=== PATIENT | female | born 1945 | race Caucasian/White ===

== ENCOUNTER 2020-09-04 02:30 | Inpatient (IN) | payer MEDICARE, OTHER ==
[2020-09-04 02:39] VITALS: BMI 30.2
[2020-09-04] MEDS ORDERED: DEXAMETHASONE SOD PHOSPHATE 4 MG/1 ML VIAL IVPUSH ONE (03:30)
[2020-09-04] MEDS ORDERED: ACETAMINOPHEN 1000 MG/100 ML VIAL (NON FORMULARY) IVPB ONE (03:30)
[2020-09-04] MEDS ORDERED: ACETAMINOPHEN INJECTION 100 ML IVPB ONE (03:32)
[2020-09-04] MEDS ORDERED: DEXAMETHASONE SOD PHOSPHATE 4 MG/1 ML VIAL ONE (03:32)
[2020-09-04 04:31] LABS: BASO % 0.1 % (0-2.0); EOS % 0.1 % (0-4.5); HEMATOCRIT 44.8 % (32.4-45.2); LYMPH % 7.9 % (8-40); MCH 29.1 pg (25.7-33.7); MCHC 33.5 g/dl (32.0-36.0); MEAN CELL VOLUME 86.8 fl (80-96); MEAN PLT VOLUME 8.5 fl (7.5-11.1); MONO % 5.8 % (3.8-10.2); NEUT % 86.1 % (42.8-82.8); PLATELET COUNT 339 K/MM3 (134-434); RBC 5.16 M/mm3 (3.60-5.2); RDW 14.3 % (11.6-15.6); WHITE BLOOD COUNT 13.8 K/mm3 (4.0-10.0)
[2020-09-04 04:46] LABS: INR 1.15 (0.83-1.09); PROTHROMBIN TIME (PATIENT) 13.9 SEC (9.7-13.0)
[2020-09-04 04:46] LABS: VENOUS BASE EXCESS 1.2 mmol/L (-2-2); VENOUS O2 SATURATION 56.5 % (70-80); VENOUS PH 7.403 (7.310-7.410)
[2020-09-04 04:49] LABS: ACTIVATED PTT 25.9 SECONDS (25.2-36.5); CHLORIDE 105 mmol/L (98-107); POTASSIUM 5.1 mmol/L (3.5-5.1); SODIUM 140 mmol/L (136-145)
[2020-09-04 04:51] LABS: ALBUMIN 2.8 g/dl (3.4-5.0); CALCIUM 8.4 mg/dL (8.5-10.1)
[2020-09-04 04:52] LABS: ANION GAP 10 MMOL/L (8-16); CO2 25 mmol/L (21-32); GLUCOSE,RANDOM 286 mg/dL (74-106)
[2020-09-04 04:54] LABS: BILIRUBIN,DIRECT 0.3 mg/dL (0.0-0.2)
[2020-09-04 04:55] LABS: CREATININE 0.9 mg/dL (0.55-1.3); SGOT/AST 21 U/L (15-37); SGPT/ALT 21 U/L (13-61)
[2020-09-04 04:56] LABS: BILIRUBIN,TOTAL 1.2 mg/dL (0.2-1); LDH 369 U/L (84-246); TOT PROT 7.2 g/dl (6.4-8.2)
[2020-09-04 04:57] LABS: ALK PHOS 98 U/L (45-117)
[2020-09-04 05:00] LABS: EPI CELLS 5 /uL (0-25.1); HYALINE CASTS 0 /uL (0-3.1); URINE APPEARANCE CLEAR; URINE BACTERIA 44 /uL (0-1359); URINE BILIRUBIN NEGATIVE (NEGATIVE); URINE COLOR YELLOW; URINE GLUCOSE (UA) TRACE (NEGATIVE); URINE KETONE NEGATIVE (NEGATIVE); URINE LEUK ESTERASE NEGATIVE (NEGATIVE); URINE NITRITE NEGATIVE (NEGATIVE); URINE PROTEIN 2+ (NEGATIVE); URINE RBC 3 /uL (0-23.9); URINE UROBILINOGEN 0.2 mg/dL (0.2-1.0); URINE WBC 2 /uL (0-25.8)
[2020-09-04] MEDS ORDERED: SODIUM CHLORIDE 0.9% 500 ML INFUS.BAG IV ONE (05:23)
[2020-09-04] MEDS ORDERED: ASCORBIC ACID 500 MG TABLET (FP) ONE (09:31)
[2020-09-04] MEDS ORDERED: DEXAMETHASONE 4 MG TABLET (FP) ONE (09:31)
[2020-09-04] MEDS ORDERED: CHOLECALCIFEROL (VIT D3) 1,000 UNIT (25 MCG) TABLET ONE (09:32)
[2020-09-04] MEDS ORDERED: ENOXAPARIN NA (PORCINE) 40 MG/0.4 ML DISP.SYRIN SQ ONE (09:32)
[2020-09-04] MEDS ORDERED: ZINC SULFATE 220 MG CAPSULE (FP) ONE (09:32)
[2020-09-04] MEDS: ENOXAPARIN NA (PORCINE) 40 MG/0.4 ML DISP.SYRIN SQ SCH (09:52)
[2020-09-04] MEDS: CHOLECALCIFEROL (VIT D3) 1,000 UNIT (25 MCG) TABLET PO SCH (09:52)
[2020-09-04] MEDS: ASCORBIC ACID 500 MG TABLET (FP) PO SCH ×2 (09:52→21:14)
[2020-09-04] MEDS ORDERED: LOSARTAN POTASSIUM 25 MG TABLET PO SCH ×2 (10:00→12:00)
[2020-09-04] MEDS ORDERED: ZINC SULFATE 220 MG TABLET PO SCH (10:00)
[2020-09-04] MEDS: amLODIPine BESYLATE 5 MG TABLET (FP) PO SCH (12:51)
[2020-09-04] MEDS: LOSARTAN POTASSIUM 25 MG TABLET PO SCH (21:14)
[2020-09-05 10:21] LABS: INR 1.19 (0.83-1.09); PROTHROMBIN TIME (PATIENT) 14.3 SEC (9.7-13.0)
[2020-09-05 10:25] LABS: HEMATOCRIT 43.2 % (32.4-45.2); HEMOGLOBIN 14.1 GM/dL (10.7-15.3); MCH 28.7 pg (25.7-33.7); MCHC 32.7 g/dl (32.0-36.0); MEAN CELL VOLUME 87.8 fl (80-96); MEAN PLT VOLUME 8.1 fl (7.5-11.1); PLATELET COUNT 353 K/MM3 (134-434); RBC 4.92 M/mm3 (3.60-5.2); RDW 14.4 % (11.6-15.6); WHITE BLOOD COUNT 17.6 K/mm3 (4.0-10.0)
[2020-09-05] MEDS: DEXAMETHASONE 4 MG TABLET (FP) PO SCH (10:31)
[2020-09-05] MEDS: LOSARTAN POTASSIUM 25 MG TABLET PO SCH ×2 (10:31→22:20)
[2020-09-05] MEDS: ENOXAPARIN NA (PORCINE) 40 MG/0.4 ML DISP.SYRIN SQ SCH (10:32)
[2020-09-05] MEDS: ASCORBIC ACID 500 MG TABLET (FP) PO SCH ×2 (10:32→22:29)
[2020-09-05] MEDS: CHOLECALCIFEROL (VIT D3) 1,000 UNIT (25 MCG) TABLET PO SCH (10:32)
[2020-09-05] MEDS: ZINC SULFATE 220 MG CAPSULE (FP) PO SCH (10:32)
[2020-09-05] MEDS: amLODIPine BESYLATE 5 MG TABLET (FP) PO SCH (10:32)
[2020-09-05] MEDS: CEFTRIAXONE 1 GM in DEXTROSE 5%-WATER - 50 ML IVPB SCH (10:33)
[2020-09-05] MEDS: ASPIRIN 81 MG CHEWABLE TABLETS PO SCH (10:33)
[2020-09-05 10:37] LABS: POTASSIUM 4.4 mmol/L (3.5-5.1)
[2020-09-05 10:44] LABS: ALBUMIN 2.4 g/dl (3.4-5.0); BLOOD UREA NITROGEN 24.5 mg/dL (7-18); CALCIUM 8.6 mg/dL (8.5-10.1)
[2020-09-05 10:46] LABS: BILIRUBIN,TOTAL 0.9 mg/dL (0.2-1); CREATININE 0.9 mg/dL (0.55-1.3)
[2020-09-05 10:47] LABS: TOT PROT 6.7 g/dl (6.4-8.2)
[2020-09-05] MEDS ORDERED: REMDESIVIR 200 MG in SODIUM CHLORIDE 210 ML IVPB ONE (17:00)
[2020-09-06] MEDS: CEFTRIAXONE 1 GM in DEXTROSE 5%-WATER - 50 ML IVPB SCH (10:04)
[2020-09-06] MEDS: amLODIPine BESYLATE 5 MG TABLET (FP) PO SCH (10:05)
[2020-09-06] MEDS: ASCORBIC ACID 500 MG TABLET (FP) PO SCH ×2 (10:05→22:07)
[2020-09-06] MEDS: CHOLECALCIFEROL (VIT D3) 1,000 UNIT (25 MCG) TABLET PO SCH (10:05)
[2020-09-06] MEDS: ZINC SULFATE 220 MG CAPSULE (FP) PO SCH (10:05)
[2020-09-06] MEDS: ASPIRIN 81 MG CHEWABLE TABLETS PO SCH (10:05)
[2020-09-06] MEDS: DEXAMETHASONE 4 MG TABLET (FP) PO SCH (10:06)
[2020-09-06] MEDS: LOSARTAN POTASSIUM 25 MG TABLET PO SCH ×2 (10:07→22:10)
[2020-09-06] MEDS: ENOXAPARIN NA (PORCINE) 40 MG/0.4 ML DISP.SYRIN SQ SCH (10:07)
[2020-09-06 12:10] LABS: BASO % 0.5 % (0-2.0); HEMATOCRIT 41.8 % (32.4-45.2); HEMOGLOBIN 13.9 GM/dL (10.7-15.3); LYMPH % 4.7 % (8-40); MCH 28.8 pg (25.7-33.7); MCHC 33.1 g/dl (32.0-36.0); MEAN CELL VOLUME 86.9 fl (80-96); MEAN PLT VOLUME 8.2 fl (7.5-11.1); MONO % 5.8 % (3.8-10.2); PLATELET COUNT 326 K/MM3 (134-434); RBC 4.81 M/mm3 (3.60-5.2); RDW 14.1 % (11.6-15.6)
[2020-09-06 12:17] LABS: POTASSIUM 4.6 mmol/L (3.5-5.1)
[2020-09-06 12:19] LABS: CALCIUM 8.3 mg/dL (8.5-10.1)
[2020-09-06 12:20] LABS: ALBUMIN 2.3 g/dl (3.4-5.0); BLOOD UREA NITROGEN 32.9 mg/dL (7-18)
[2020-09-06 12:23] LABS: CREATININE 0.9 mg/dL (0.55-1.3)
[2020-09-06 12:24] LABS: BILIRUBIN,TOTAL 0.5 mg/dL (0.2-1)
[2020-09-06 12:25] LABS: TOT PROT 6.6 g/dl (6.4-8.2)
[2020-09-06] MEDS: REMDESIVIR 100 MG in SODIUM CHLORIDE 230 ML IVPB SCH (17:10)
[2020-09-06] MEDS: INSULIN SLIDING SCALE (NOVOLOG) 1 VIAL SQ SCH ×2 (17:18→22:15)
[2020-09-06] MEDS ORDERED: INSULIN (LEVEMIR) 100 UNITS/ML UNITS SQ SCH (22:00)
[2020-09-06] MEDS: INSULIN (LEVEMIR) 100 UNITS/ML UNITS SQ SCH (22:11)
[2020-09-07] MEDS: INSULIN (LEVEMIR) 100 UNITS/ML UNITS SQ SCH ×2 (06:07→21:25)
[2020-09-07] MEDS: INSULIN SLIDING SCALE (NOVOLOG) 1 VIAL SQ SCH ×4 (06:08→21:24)
[2020-09-07 08:43] LABS: BASO % 0.1 % (0-2.0); HEMATOCRIT 41.5 % (32.4-45.2); LYMPH % 6.1 % (8-40); MCH 29.1 pg (25.7-33.7); MCHC 33.7 g/dl (32.0-36.0); MEAN CELL VOLUME 86.2 fl (80-96); MONO % 5.6 % (3.8-10.2); NEUT % 88.2 % (42.8-82.8); PLATELET COUNT 362 K/MM3 (134-434); RBC 4.82 M/mm3 (3.60-5.2); RDW 14.3 % (11.6-15.6)
[2020-09-07 08:56] LABS: POTASSIUM 4.2 mmol/L (3.5-5.1)
[2020-09-07 09:17] LABS: ALBUMIN 2.3 g/dl (3.4-5.0); BLOOD UREA NITROGEN 28.5 mg/dL (7-18); CALCIUM 8.4 mg/dL (8.5-10.1); MAGNESIUM 2.2 mg/dL (1.8-2.4)
[2020-09-07 09:21] LABS: CREATININE 0.8 mg/dL (0.55-1.3); PHOSPHOROUS 3.8 mg/dL (2.5-4.9)
[2020-09-07 09:22] LABS: BILIRUBIN,TOTAL 0.4 mg/dL (0.2-1); TOT PROT 6.5 g/dl (6.4-8.2)
[2020-09-07] MEDS: ENOXAPARIN NA (PORCINE) 40 MG/0.4 ML DISP.SYRIN SQ SCH (10:35)
[2020-09-07] MEDS: CEFTRIAXONE 1 GM in DEXTROSE 5%-WATER - 50 ML IVPB SCH (10:35)
[2020-09-07] MEDS: DEXAMETHASONE 4 MG TABLET (FP) PO SCH (10:36)
[2020-09-07] MEDS: ASPIRIN 81 MG CHEWABLE TABLETS PO SCH (10:38)
[2020-09-07] MEDS: amLODIPine BESYLATE 5 MG TABLET (FP) PO SCH (10:38)
[2020-09-07] MEDS: ASCORBIC ACID 500 MG TABLET (FP) PO SCH ×2 (10:38→21:24)
[2020-09-07] MEDS: LOSARTAN POTASSIUM 25 MG TABLET PO SCH ×2 (10:38→21:24)
[2020-09-07] MEDS: CHOLECALCIFEROL (VIT D3) 1,000 UNIT (25 MCG) TABLET PO SCH (10:38)
[2020-09-07] MEDS: ZINC SULFATE 220 MG CAPSULE (FP) PO SCH (10:38)
[2020-09-07] MEDS: REMDESIVIR 100 MG in SODIUM CHLORIDE 230 ML IVPB SCH (16:34)
[2020-09-08] MEDS: INSULIN (LEVEMIR) 100 UNITS/ML UNITS SQ SCH ×2 (07:03→21:06)
[2020-09-08] MEDS: INSULIN SLIDING SCALE (NOVOLOG) 1 VIAL SQ SCH ×4 (07:04→21:06)
[2020-09-08] MEDS ORDERED: INSULIN (LEVEMIR) 100 UNITS/ML UNITS SQ ONE (08:00)
[2020-09-08 09:42] LABS: BASO % 0.2 % (0-2.0); HEMATOCRIT 43.6 % (32.4-45.2); HEMOGLOBIN 14.6 GM/dL (10.7-15.3); LYMPH % 6.7 % (8-40); MCHC 33.4 g/dl (32.0-36.0); MEAN CELL VOLUME 86.7 fl (80-96); MONO % 6.1 % (3.8-10.2); PLATELET COUNT 358 K/MM3 (134-434); RBC 5.03 M/mm3 (3.60-5.2); RDW 14.1 % (11.6-15.6)
[2020-09-08 10:09] LABS: CHLORIDE 108 mmol/L (98-107); POTASSIUM 4.5 mmol/L (3.5-5.1); SODIUM 140 mmol/L (136-145)
[2020-09-08 10:12] LABS: ALBUMIN 2.2 g/dl (3.4-5.0); ANION GAP 13 MMOL/L (8-16); BLOOD UREA NITROGEN 29.5 mg/dL (7-18); CALCIUM 8.5 mg/dL (8.5-10.1); CO2 20 mmol/L (21-32); GLUCOSE,RANDOM 243 mg/dL (74-106); MAGNESIUM 2.2 mg/dL (1.8-2.4)
[2020-09-08 10:15] LABS: CREATININE 0.8 mg/dL (0.55-1.3); PHOSPHOROUS 4.6 mg/dL (2.5-4.9); SGOT/AST 8 U/L (15-37); SGPT/ALT 13 U/L (13-61)
[2020-09-08 10:16] LABS: BILIRUBIN,TOTAL 1.1 mg/dL (0.2-1); LDH 249 U/L (84-246); TOT PROT 6.3 g/dl (6.4-8.2)
[2020-09-08 10:50] LABS: ALK PHOS 84 U/L (45-117)
[2020-09-08] MEDS: CEFTRIAXONE 1 GM in DEXTROSE 5%-WATER - 50 ML IVPB SCH (11:17)
[2020-09-08] MEDS: ASPIRIN 81 MG CHEWABLE TABLETS PO SCH (11:17)
[2020-09-08] MEDS: LOSARTAN POTASSIUM 25 MG TABLET PO SCH ×2 (11:18→21:05)
[2020-09-08] MEDS: ZINC SULFATE 220 MG CAPSULE (FP) PO SCH (11:18)
[2020-09-08] MEDS: CHOLECALCIFEROL (VIT D3) 1,000 UNIT (25 MCG) TABLET PO SCH (11:18)
[2020-09-08] MEDS: amLODIPine BESYLATE 5 MG TABLET (FP) PO SCH (11:18)
[2020-09-08] MEDS: DEXAMETHASONE 4 MG TABLET (FP) PO SCH (11:19)
[2020-09-08] MEDS: ENOXAPARIN NA (PORCINE) 40 MG/0.4 ML DISP.SYRIN SQ SCH (11:19)
[2020-09-08] MEDS: ASCORBIC ACID 500 MG TABLET (FP) PO SCH ×2 (11:19→21:05)
[2020-09-08] MEDS: BUDESONIDE/FORMETEROL FUMARATE 160/4.5 mcg INHALER IH SCH ×2 (13:25→21:05)
[2020-09-08] MEDS: ALBUTEROL SO4 HFA INHALER IH SCH ×2 (18:27→20:45)
[2020-09-08] MEDS: REMDESIVIR 100 MG in SODIUM CHLORIDE 230 ML IVPB SCH (18:29)
[2020-09-09] MEDS: INSULIN SLIDING SCALE (NOVOLOG) 1 VIAL SQ SCH ×4 (06:11→21:31)
[2020-09-09] MEDS: INSULIN (LEVEMIR) 100 UNITS/ML UNITS SQ SCH ×2 (06:13→21:31)
[2020-09-09] MEDS: ALBUTEROL SO4 HFA INHALER IH SCH ×4 (08:45→20:53)
[2020-09-09 09:08] LABS: HEMATOCRIT 40.5 % (32.4-45.2); HEMOGLOBIN 13.9 GM/dL (10.7-15.3); LYMPH % 4.4 % (8-40); MCH 29.1 pg (25.7-33.7); MCHC 34.2 g/dl (32.0-36.0); MEAN CELL VOLUME 85.1 fl (80-96); MEAN PLT VOLUME 7.7 fl (7.5-11.1); MONO % 5.9 % (3.8-10.2); NEUT % 89.7 % (42.8-82.8); PLATELET COUNT 376 K/MM3 (134-434); RBC 4.76 M/mm3 (3.60-5.2); RDW 13.8 % (11.6-15.6); WHITE BLOOD COUNT 12.8 K/mm3 (4.0-10.0)
[2020-09-09 09:20] LABS: POTASSIUM 4.2 mmol/L (3.5-5.1)
[2020-09-09 09:28] LABS: ALBUMIN 2.1 g/dl (3.4-5.0); CALCIUM 8.4 mg/dL (8.5-10.1)
[2020-09-09 09:29] LABS: BLOOD UREA NITROGEN 30.6 mg/dL (7-18); MAGNESIUM 2.3 mg/dL (1.8-2.4)
[2020-09-09 09:30] LABS: BILIRUBIN,TOTAL 0.5 mg/dL (0.2-1); CREATININE 0.8 mg/dL (0.55-1.3); PHOSPHOROUS 3.9 mg/dL (2.5-4.9); TOT PROT 6.1 g/dl (6.4-8.2)
[2020-09-09] MEDS: BUDESONIDE/FORMETEROL FUMARATE 160/4.5 mcg INHALER IH SCH ×2 (10:09→21:33)
[2020-09-09] MEDS: CEFTRIAXONE 1 GM in DEXTROSE 5%-WATER - 50 ML IVPB SCH (10:10)
[2020-09-09] MEDS: LOSARTAN POTASSIUM 25 MG TABLET PO SCH ×2 (10:10→21:29)
[2020-09-09] MEDS: DEXAMETHASONE SOD PHOSPHATE 4 MG/1 ML VIAL IVPUSH SCH (10:10)
[2020-09-09] MEDS: ASPIRIN 81 MG CHEWABLE TABLETS PO SCH (10:10)
[2020-09-09] MEDS: amLODIPine BESYLATE 5 MG TABLET (FP) PO SCH (10:11)
[2020-09-09] MEDS: CHOLECALCIFEROL (VIT D3) 1,000 UNIT (25 MCG) TABLET PO SCH (10:11)
[2020-09-09] MEDS: ENOXAPARIN NA (PORCINE) 40 MG/0.4 ML DISP.SYRIN SQ SCH (10:11)
[2020-09-09] MEDS: ZINC SULFATE 220 MG CAPSULE (FP) PO SCH (10:11)
[2020-09-09] MEDS: ASCORBIC ACID 500 MG TABLET (FP) PO SCH ×2 (10:11→21:29)
[2020-09-09] MEDS: REMDESIVIR 100 MG in SODIUM CHLORIDE 230 ML IVPB SCH (16:30)
[2020-09-09] MEDS: ACETAMINOPHEN 325 MG TABLET (FP) PO PRN (21:30)
[2020-09-09] MEDS ORDERED: INSULIN (LEVEMIR) 100 UNITS/ML UNITS SQ SCH (22:00)
[2020-09-10] MEDS: INSULIN (LEVEMIR) 100 UNITS/ML UNITS SQ SCH ×2 (06:08→20:59)
[2020-09-10] MEDS: INSULIN SLIDING SCALE (NOVOLOG) 1 VIAL SQ SCH ×4 (06:09→21:00)
[2020-09-10] MEDS: ALBUTEROL SO4 HFA INHALER IH SCH ×4 (08:55→20:12)
[2020-09-10] MEDS: amLODIPine BESYLATE 5 MG TABLET (FP) PO SCH (09:02)
[2020-09-10] MEDS: ZINC SULFATE 220 MG CAPSULE (FP) PO SCH (09:02)
[2020-09-10] MEDS: ASPIRIN 81 MG CHEWABLE TABLETS PO SCH (09:02)
[2020-09-10] MEDS: DEXAMETHASONE SOD PHOSPHATE 4 MG/1 ML VIAL IVPUSH SCH (09:02)
[2020-09-10] MEDS: ASCORBIC ACID 500 MG TABLET (FP) PO SCH ×2 (09:02→20:59)
[2020-09-10] MEDS: CHOLECALCIFEROL (VIT D3) 1,000 UNIT (25 MCG) TABLET PO SCH (09:02)
[2020-09-10] MEDS: BUDESONIDE/FORMETEROL FUMARATE 160/4.5 mcg INHALER IH SCH ×2 (09:03→21:01)
[2020-09-10] MEDS: CEFTRIAXONE 1 GM in DEXTROSE 5%-WATER - 50 ML IVPB SCH (09:03)
[2020-09-10] MEDS: ENOXAPARIN NA (PORCINE) 40 MG/0.4 ML DISP.SYRIN SQ SCH (09:03)
[2020-09-10 09:22] LABS: BASO % 0.2 % (0-2.0); EOS % 0.1 % (0-4.5); HEMATOCRIT 41.2 % (32.4-45.2); HEMOGLOBIN 13.9 GM/dL (10.7-15.3); LYMPH % 5.5 % (8-40); MCHC 33.7 g/dl (32.0-36.0); MEAN CELL VOLUME 86.1 fl (80-96); MONO % 7.3 % (3.8-10.2); NEUT % 86.9 % (42.8-82.8); PLATELET COUNT 353 K/MM3 (134-434); RBC 4.78 M/mm3 (3.60-5.2); RDW 14.3 % (11.6-15.6); WHITE BLOOD COUNT 11.9 K/mm3 (4.0-10.0)
[2020-09-10 09:54] LABS: POTASSIUM 4.6 mmol/L (3.5-5.1)
[2020-09-10 10:49] LABS: BLOOD UREA NITROGEN 32.4 mg/dL (7-18)
[2020-09-10 10:50] LABS: CALCIUM 8.9 mg/dL (8.5-10.1)
[2020-09-10 10:51] LABS: MAGNESIUM 2.3 mg/dL (1.8-2.4)
[2020-09-10 10:53] LABS: CREATININE 0.8 mg/dL (0.55-1.3)
[2020-09-10] MEDS: LOSARTAN POTASSIUM 25 MG TABLET PO SCH ×2 (10:53→20:59)
[2020-09-10 10:54] LABS: PHOSPHOROUS 4.3 mg/dL (2.5-4.9)
[2020-09-10 10:55] LABS: BILIRUBIN,TOTAL 0.4 mg/dL (0.2-1); TOT PROT 6.2 g/dl (6.4-8.2)
[2020-09-10 10:58] LABS: ALBUMIN 2.1 g/dl (3.4-5.0)
[2020-09-10] MEDS ORDERED: TOCILIZUMAB (ACTEMRA) 200 MG/10 ML VIAL IVPB ONE (12:45)
[2020-09-10] MEDS ORDERED: TOCILIZUMAB 600 MG in SODIUM CHLORIDE 70 ML IVPB ONE (14:00)
[2020-09-10] MEDS: PANTOPRAZOLE SODIUM 40 MG VIAL IVPUSH SCH (18:53)
[2020-09-10] MEDS: ENOXAPARIN NA (PORCINE) 80 MG/0.8 ML DISP.SYRIN SQ SCH (21:00)
[2020-09-10] MEDS ORDERED: CEFTRIAXONE 1,000 MG in DEXTROSE 5%-WATER - 50 ML IVPB SCH (21:45)
[2020-09-10] MEDS ORDERED: CEFTRIAXONE IVPB SCH (21:45)
[2020-09-10] MEDS ORDERED: [UNRECOGNIZED DRUG - OTHER] IVPB SCH (21:45)
[2020-09-10] MEDS ORDERED: CEFTRIAXONE 1 G/50 ML PREMIX 50 ML IVPB SCH (21:45)
[2020-09-11] MEDS ORDERED: MELATONIN 5 MG TABLETS PO ONE (00:46)
[2020-09-11] MEDS: INSULIN (LEVEMIR) 100 UNITS/ML UNITS SQ SCH ×2 (06:00→21:42)
[2020-09-11] MEDS: INSULIN SLIDING SCALE (NOVOLOG) 1 VIAL SQ SCH ×4 (06:01→21:49)
[2020-09-11 08:50] LABS: EOS % 0.1 % (0-4.5); HEMATOCRIT 41.2 % (32.4-45.2); HEMOGLOBIN 13.8 GM/dL (10.7-15.3); LYMPH % 6.3 % (8-40); MCH 29.1 pg (25.7-33.7); MCHC 33.6 g/dl (32.0-36.0); MEAN CELL VOLUME 86.7 fl (80-96); MONO % 5.6 % (3.8-10.2); PLATELET COUNT 356 K/MM3 (134-434); RBC 4.75 M/mm3 (3.60-5.2); RDW 14.4 % (11.6-15.6); WHITE BLOOD COUNT 11.2 K/mm3 (4.0-10.0)
[2020-09-11 09:06] LABS: POTASSIUM 5.1 mmol/L (3.5-5.1)
[2020-09-11 09:26] LABS: ALBUMIN 2.2 g/dl (3.4-5.0); BLOOD UREA NITROGEN 37.9 mg/dL (7-18); CALCIUM 8.8 mg/dL (8.5-10.1); MAGNESIUM 2.4 mg/dL (1.8-2.4)
[2020-09-11 09:30] LABS: PHOSPHOROUS 4.4 mg/dL (2.5-4.9)
[2020-09-11 09:31] LABS: BILIRUBIN,TOTAL 0.6 mg/dL (0.2-1); TOT PROT 6.1 g/dl (6.4-8.2)
[2020-09-11] MEDS: ASPIRIN 81 MG CHEWABLE TABLETS PO SCH (09:41)
[2020-09-11] MEDS: DEXAMETHASONE SOD PHOSPHATE 4 MG/1 ML VIAL IVPUSH SCH (09:41)
[2020-09-11] MEDS: amLODIPine BESYLATE 5 MG TABLET (FP) PO SCH (09:41)
[2020-09-11] MEDS: ZINC SULFATE 220 MG CAPSULE (FP) PO SCH (09:41)
[2020-09-11] MEDS: CHOLECALCIFEROL (VIT D3) 1,000 UNIT (25 MCG) TABLET PO SCH (09:41)
[2020-09-11] MEDS: ASCORBIC ACID 500 MG TABLET (FP) PO SCH ×2 (09:42→21:50)
[2020-09-11] MEDS: PANTOPRAZOLE SODIUM 40 MG VIAL IVPUSH SCH (09:42)
[2020-09-11] MEDS: ENOXAPARIN NA (PORCINE) 80 MG/0.8 ML DISP.SYRIN SQ SCH ×2 (09:43→21:43)
[2020-09-11] MEDS: ALBUTEROL SO4 HFA INHALER IH SCH ×4 (09:44→21:49)
[2020-09-11] MEDS: LOSARTAN POTASSIUM 25 MG TABLET PO SCH ×2 (09:44→21:41)
[2020-09-11] MEDS: BUDESONIDE/FORMETEROL FUMARATE 160/4.5 mcg INHALER IH SCH ×2 (09:45→21:50)
[2020-09-11] MEDS: CEFTRIAXONE 1 GM in DEXTROSE 5%-WATER - 50 ML IVPB SCH (12:36)
[2020-09-12] MEDS: INSULIN (LEVEMIR) 100 UNITS/ML UNITS SQ SCH ×2 (06:12→21:30)
[2020-09-12] MEDS: INSULIN SLIDING SCALE (NOVOLOG) 1 VIAL SQ SCH ×4 (06:13→21:30)
[2020-09-12] MEDS: ALBUTEROL SO4 HFA INHALER IH SCH ×4 (10:17→21:42)
[2020-09-12] MEDS: ASCORBIC ACID 500 MG TABLET (FP) PO SCH ×2 (10:18→21:43)
[2020-09-12] MEDS: amLODIPine BESYLATE 5 MG TABLET (FP) PO SCH (10:18)
[2020-09-12] MEDS: ASPIRIN 81 MG CHEWABLE TABLETS PO SCH (10:19)
[2020-09-12] MEDS: CHOLECALCIFEROL (VIT D3) 1,000 UNIT (25 MCG) TABLET PO SCH (10:19)
[2020-09-12] MEDS: ZINC SULFATE 220 MG CAPSULE (FP) PO SCH (10:19)
[2020-09-12] MEDS: ENOXAPARIN NA (PORCINE) 80 MG/0.8 ML DISP.SYRIN SQ SCH ×2 (10:19→21:33)
[2020-09-12] MEDS: LOSARTAN POTASSIUM 25 MG TABLET PO SCH ×2 (10:19→21:33)
[2020-09-12] MEDS: MORPHINE SULFATE 2 MG/ML VIAL IVPUSH PRN ×2 (10:23→23:48)
[2020-09-12] MEDS: DEXAMETHASONE SOD PHOSPHATE 4 MG/1 ML VIAL IVPUSH SCH (10:23)
[2020-09-12] MEDS: PANTOPRAZOLE SODIUM 40 MG VIAL IVPUSH SCH (10:23)
[2020-09-12] MEDS: BUDESONIDE/FORMETEROL FUMARATE 160/4.5 mcg INHALER IH SCH ×2 (10:23→21:43)
[2020-09-12] MEDS: CEFTRIAXONE 1 GM in DEXTROSE 5%-WATER - 50 ML IVPB SCH (11:49)
[2020-09-12 12:54] LABS: BASO % 0.1 % (0-2.0); EOS % 0.2 % (0-4.5); HEMATOCRIT 42.9 % (32.4-45.2); HEMOGLOBIN 14.5 GM/dL (10.7-15.3); LYMPH % 5.7 % (8-40); MCH 29.4 pg (25.7-33.7); MCHC 33.7 g/dl (32.0-36.0); MEAN CELL VOLUME 87.1 fl (80-96); MEAN PLT VOLUME 8.6 fl (7.5-11.1); PLATELET COUNT 359 K/MM3 (134-434); RBC 4.93 M/mm3 (3.60-5.2); RDW 14.3 % (11.6-15.6); WHITE BLOOD COUNT 10.6 K/mm3 (4.0-10.0)
[2020-09-12 13:05] LABS: POTASSIUM 4.9 mmol/L (3.5-5.1)
[2020-09-12 13:16] LABS: ALBUMIN 2.2 g/dl (3.4-5.0); BLOOD UREA NITROGEN 39.6 mg/dL (7-18); CALCIUM 8.2 mg/dL (8.5-10.1)
[2020-09-12 13:17] LABS: BILIRUBIN,TOTAL 0.6 mg/dL (0.2-1)
[2020-09-12 13:19] LABS: CREATININE 0.8 mg/dL (0.55-1.3)
[2020-09-13] MEDS: INSULIN (LEVEMIR) 100 UNITS/ML UNITS SQ SCH ×2 (05:59→21:45)
[2020-09-13] MEDS: INSULIN SLIDING SCALE (NOVOLOG) 1 VIAL SQ SCH ×4 (05:59→22:24)
[2020-09-13] MEDS: MORPHINE SULFATE 2 MG/ML VIAL IVPUSH PRN ×2 (06:00→09:58)
[2020-09-13] MEDS: ALBUTEROL SO4 HFA INHALER IH SCH ×4 (08:25→20:44)
[2020-09-13] MEDS: LOSARTAN POTASSIUM 25 MG TABLET PO SCH ×2 (09:58→21:44)
[2020-09-13] MEDS: DEXAMETHASONE SOD PHOSPHATE 4 MG/1 ML VIAL IVPUSH SCH (10:00)
[2020-09-13] MEDS: PANTOPRAZOLE SODIUM 40 MG VIAL IVPUSH SCH (10:00)
[2020-09-13] MEDS: ENOXAPARIN NA (PORCINE) 80 MG/0.8 ML DISP.SYRIN SQ SCH ×2 (10:00→21:48)
[2020-09-13] MEDS: ZINC SULFATE 220 MG CAPSULE (FP) PO SCH (10:00)
[2020-09-13] MEDS: ASPIRIN 81 MG CHEWABLE TABLETS PO SCH (10:00)
[2020-09-13] MEDS: CEFTRIAXONE 1 GM in DEXTROSE 5%-WATER - 50 ML IVPB SCH (10:01)
[2020-09-13] MEDS: amLODIPine BESYLATE 5 MG TABLET (FP) PO SCH (10:01)
[2020-09-13] MEDS: ASCORBIC ACID 500 MG TABLET (FP) PO SCH ×2 (10:01→21:44)
[2020-09-13] MEDS: CHOLECALCIFEROL (VIT D3) 1,000 UNIT (25 MCG) TABLET PO SCH (10:02)
[2020-09-13] MEDS: BUDESONIDE/FORMETEROL FUMARATE 160/4.5 mcg INHALER IH SCH ×2 (10:02→21:45)
[2020-09-13 10:05] LABS: BASO % 0.4 % (0-2.0); EOS % 0.2 % (0-4.5); HEMATOCRIT 44.9 % (32.4-45.2); HEMOGLOBIN 15.4 GM/dL (10.7-15.3); LYMPH % 11.4 % (8-40); MCH 29.3 pg (25.7-33.7); MCHC 34.4 g/dl (32.0-36.0); MEAN CELL VOLUME 85.3 fl (80-96); MEAN PLT VOLUME 8.2 fl (7.5-11.1); PLATELET COUNT 374 K/MM3 (134-434); RBC 5.27 M/mm3 (3.60-5.2); RDW 14.3 % (11.6-15.6); WHITE BLOOD COUNT 10.7 K/mm3 (4.0-10.0)
[2020-09-13 10:31] LABS: POTASSIUM 4.9 mmol/L (3.5-5.1)
[2020-09-13 10:39] LABS: ALBUMIN 2.4 g/dl (3.4-5.0); CALCIUM 8.3 mg/dL (8.5-10.1)
[2020-09-13 10:40] LABS: TOT PROT 6.2 g/dl (6.4-8.2)
[2020-09-13 10:42] LABS: BLOOD UREA NITROGEN 41.6 mg/dL (7-18)
[2020-09-13 10:51] LABS: BILIRUBIN,TOTAL 0.7 mg/dL (0.2-1)
[2020-09-13] MEDS: ALBUTEROL SO4 HFA INHALER IH PRN (18:15)
[2020-09-14] MEDS: INSULIN (LEVEMIR) 100 UNITS/ML UNITS SQ SCH ×2 (05:59→21:27)
[2020-09-14] MEDS: ALBUTEROL SO4 HFA INHALER IH SCH ×4 (09:00→21:53)
[2020-09-14] MEDS: INSULIN SLIDING SCALE (NOVOLOG) 1 VIAL SQ SCH ×4 (09:07→21:25)
[2020-09-14] MEDS ORDERED: cefTRIAXone SODIUM 1 GM VIAL ONE (09:21)
[2020-09-14] MEDS ORDERED: DEXTROSE 5%-WATER - 50 ML IVPB ONE (09:21)
[2020-09-14] MEDS: PANTOPRAZOLE SODIUM 40 MG VIAL IVPUSH SCH (09:26)
[2020-09-14] MEDS: DEXAMETHASONE SOD PHOSPHATE 4 MG/1 ML VIAL IVPUSH SCH (09:26)
[2020-09-14] MEDS: CEFTRIAXONE 1 GM in DEXTROSE 5%-WATER - 50 ML IVPB SCH (09:27)
[2020-09-14] MEDS: ASPIRIN 81 MG CHEWABLE TABLETS PO SCH (09:27)
[2020-09-14] MEDS: ASCORBIC ACID 500 MG TABLET (FP) PO SCH ×2 (09:27→21:25)
[2020-09-14] MEDS: ENOXAPARIN NA (PORCINE) 80 MG/0.8 ML DISP.SYRIN SQ SCH ×2 (09:27→21:24)
[2020-09-14] MEDS: CHOLECALCIFEROL (VIT D3) 1,000 UNIT (25 MCG) TABLET PO SCH (09:28)
[2020-09-14] MEDS: LOSARTAN POTASSIUM 25 MG TABLET PO SCH ×2 (09:28→21:25)
[2020-09-14] MEDS: ZINC SULFATE 220 MG CAPSULE (FP) PO SCH (09:28)
[2020-09-14] MEDS: amLODIPine BESYLATE 5 MG TABLET (FP) PO SCH (09:28)
[2020-09-14] MEDS: ALBUTEROL SO4 HFA INHALER IH PRN ×3 (09:40→21:28)
[2020-09-14] MEDS: BUDESONIDE/FORMETEROL FUMARATE 160/4.5 mcg INHALER IH SCH ×2 (09:40→21:28)
[2020-09-14 12:15] LABS: BASO % 0.3 % (0-2.0); EOS % 0.2 % (0-4.5); HEMATOCRIT 44.9 % (32.4-45.2); HEMOGLOBIN 15.2 GM/dL (10.7-15.3); LYMPH % 6.2 % (8-40); MCH 29.3 pg (25.7-33.7); MCHC 33.8 g/dl (32.0-36.0); MEAN CELL VOLUME 86.6 fl (80-96); MEAN PLT VOLUME 8.4 fl (7.5-11.1); MONO % 5.1 % (3.8-10.2); NEUT % 88.2 % (42.8-82.8); PLATELET COUNT 332 K/MM3 (134-434); RBC 5.18 M/mm3 (3.60-5.2); RDW 14.5 % (11.6-15.6)
[2020-09-14 13:17] LABS: BLOOD UREA NITROGEN 44.6 mg/dL (7-18); CALCIUM 8.4 mg/dL (8.5-10.1); CREATININE 0.9 mg/dL (0.55-1.3); POTASSIUM 4.9 mmol/L (3.5-5.1)
[2020-09-14] MEDS: MORPHINE SULFATE 2 MG/ML VIAL IVPUSH PRN (17:44)
[2020-09-14] MEDS ORDERED: MORPHINE SULFATE 2 MG/ML VIAL IVPUSH ONE (21:03)
[2020-09-14] MEDS ORDERED: INSULIN (NOVOLOG) ASPART 100 UNITS/ML 10ML VIAL ONE (21:08)
[2020-09-14] MEDS: MELATONIN 5 MG TABLETS PO PRN (21:25)
[2020-09-15] MEDS: INSULIN SLIDING SCALE (NOVOLOG) 1 VIAL SQ SCH ×4 (06:04→21:11)
[2020-09-15] MEDS: INSULIN (LEVEMIR) 100 UNITS/ML UNITS SQ SCH ×2 (06:06→21:10)
[2020-09-15] MEDS ORDERED: INSULIN (LEVEMIR) 100 UNITS/ML UNITS SQ ONE (06:25)
[2020-09-15] MEDS ORDERED: INSULIN (NOVOLOG) ASPART 100 UNITS/ML 10ML VIAL ONE ×3 (06:25→21:01)
[2020-09-15 07:02] LABS: BASO % 0.1 % (0-2.0); EOS % 0.2 % (0-4.5); HEMATOCRIT 40.9 % (32.4-45.2); HEMOGLOBIN 13.9 GM/dL (10.7-15.3); LYMPH % 8.6 % (8-40); MCH 29.2 pg (25.7-33.7); MCHC 33.9 g/dl (32.0-36.0); MEAN PLT VOLUME 8.3 fl (7.5-11.1); MONO % 5.9 % (3.8-10.2); NEUT % 85.2 % (42.8-82.8); PLATELET COUNT 311 K/MM3 (134-434); RBC 4.76 M/mm3 (3.60-5.2); RDW 14.1 % (11.6-15.6); WHITE BLOOD COUNT 8.9 K/mm3 (4.0-10.0)
[2020-09-15] MEDS: ALBUTEROL SO4 HFA INHALER IH SCH ×4 (08:53→22:49)
[2020-09-15] MEDS: ZINC SULFATE 220 MG CAPSULE (FP) PO SCH (09:06)
[2020-09-15] MEDS: ASCORBIC ACID 500 MG TABLET (FP) PO SCH ×2 (09:06→21:10)
[2020-09-15] MEDS: ASPIRIN 81 MG CHEWABLE TABLETS PO SCH (09:07)
[2020-09-15] MEDS: BUDESONIDE/FORMETEROL FUMARATE 160/4.5 mcg INHALER IH SCH ×2 (09:07→21:12)
[2020-09-15] MEDS: PANTOPRAZOLE SODIUM 40 MG VIAL IVPUSH SCH (09:07)
[2020-09-15] MEDS: ENOXAPARIN NA (PORCINE) 80 MG/0.8 ML DISP.SYRIN SQ SCH ×2 (09:07→21:10)
[2020-09-15] MEDS: DEXAMETHASONE SOD PHOSPHATE 4 MG/1 ML VIAL IVPUSH SCH (09:07)
[2020-09-15] MEDS: CHOLECALCIFEROL (VIT D3) 1,000 UNIT (25 MCG) TABLET PO SCH (09:08)
[2020-09-15] MEDS: amLODIPine BESYLATE 5 MG TABLET (FP) PO SCH (09:08)
[2020-09-15] MEDS: LOSARTAN POTASSIUM 25 MG TABLET PO SCH (09:08)
[2020-09-15 09:30] LABS: LDH 285 U/L (84-246)
[2020-09-15 09:54] LABS: CHLORIDE 109 mmol/L (98-107); POTASSIUM 5.6 mmol/L (3.5-5.1); SODIUM 141 mmol/L (136-145)
[2020-09-15 10:21] LABS: ANION GAP 11 MMOL/L (8-16); BLOOD UREA NITROGEN 43.2 mg/dL (7-18); CALCIUM 8.6 mg/dL (8.5-10.1); CO2 21 mmol/L (21-32); GLUCOSE,RANDOM 148 mg/dL (74-106)
[2020-09-15 10:24] LABS: ALBUMIN 2.4 g/dl (3.4-5.0); MAGNESIUM 2.6 mg/dL (1.8-2.4); SGOT/AST 17 U/L (15-37)
[2020-09-15 10:26] LABS: TOT PROT 5.6 g/dl (6.4-8.2)
[2020-09-15 10:27] LABS: PHOSPHOROUS 4.5 mg/dL (2.5-4.9)
[2020-09-15 10:28] LABS: ALK PHOS 75 U/L (45-117); BILIRUBIN,TOTAL 0.6 mg/dL (0.2-1)
[2020-09-15 10:36] LABS: SGPT/ALT 23 U/L (13-61)
[2020-09-15] MEDS ORDERED: SODIUM ZIRCONIUM CYCLOSILICATE (LOKELMA) 5 GM PACKET PO ONE (15:30)
[2020-09-15] MEDS: ALBUTEROL SO4 HFA INHALER IH PRN ×4 (16:37→21:13)
[2020-09-15] MEDS: MELATONIN 5 MG TABLETS PO PRN (22:38)
[2020-09-15 22:41] LABS: BLOOD UREA NITROGEN 50.7 mg/dL (7-18); CALCIUM 8.2 mg/dL (8.5-10.1); CREATININE 1.2 mg/dL (0.55-1.3); POTASSIUM 5.2 mmol/L (3.5-5.1)
[2020-09-16] MEDS: INSULIN (LEVEMIR) 100 UNITS/ML UNITS SQ SCH ×2 (06:04→21:07)
[2020-09-16] MEDS: INSULIN SLIDING SCALE (NOVOLOG) 1 VIAL SQ SCH ×4 (06:05→21:06)
[2020-09-16 07:49] LABS: BASO % 0.1 % (0-2.0); EOS % 0.3 % (0-4.5); HEMATOCRIT 40.6 % (32.4-45.2); HEMOGLOBIN 13.6 GM/dL (10.7-15.3); LYMPH % 8.9 % (8-40); MCH 28.8 pg (25.7-33.7); MCHC 33.4 g/dl (32.0-36.0); MEAN CELL VOLUME 86.3 fl (80-96); MEAN PLT VOLUME 8.2 fl (7.5-11.1); NEUT % 84.7 % (42.8-82.8); PLATELET COUNT 273 K/MM3 (134-434); RDW 13.8 % (11.6-15.6); WHITE BLOOD COUNT 10.3 K/mm3 (4.0-10.0)
[2020-09-16] MEDS: PANTOPRAZOLE SODIUM 40 MG VIAL IVPUSH SCH (09:03)
[2020-09-16] MEDS: DEXAMETHASONE SOD PHOSPHATE 4 MG/1 ML VIAL IVPUSH SCH (09:03)
[2020-09-16] MEDS: ZINC SULFATE 220 MG CAPSULE (FP) PO SCH (09:04)
[2020-09-16] MEDS: ASCORBIC ACID 500 MG TABLET (FP) PO SCH ×2 (09:04→21:08)
[2020-09-16] MEDS: ASPIRIN 81 MG CHEWABLE TABLETS PO SCH (09:04)
[2020-09-16] MEDS: amLODIPine BESYLATE 5 MG TABLET (FP) PO SCH (09:04)
[2020-09-16] MEDS: ALBUTEROL SO4 HFA INHALER IH SCH ×4 (09:05→21:07)
[2020-09-16] MEDS: ENOXAPARIN NA (PORCINE) 80 MG/0.8 ML DISP.SYRIN SQ SCH ×2 (09:05→21:08)
[2020-09-16] MEDS: CHOLECALCIFEROL (VIT D3) 1,000 UNIT (25 MCG) TABLET PO SCH (09:06)
[2020-09-16] MEDS: BUDESONIDE/FORMETEROL FUMARATE 160/4.5 mcg INHALER IH SCH ×2 (09:06→21:07)
[2020-09-16 09:31] LABS: CALCIUM 8.4 mg/dL (8.5-10.1)
[2020-09-16 09:32] LABS: ALBUMIN 2.4 g/dl (3.4-5.0); BLOOD UREA NITROGEN 42.5 mg/dL (7-18); CO2 22 mmol/L (21-32); GLUCOSE,RANDOM 109 mg/dL (74-106); MAGNESIUM 2.5 mg/dL (1.8-2.4); SGPT/ALT 27 U/L (13-61)
[2020-09-16 09:33] LABS: ANION GAP 9 MMOL/L (8-16); CHLORIDE 109 mmol/L (98-107); POTASSIUM 4.8 mmol/L (3.5-5.1); SODIUM 139 mmol/L (136-145)
[2020-09-16 09:34] LABS: CREATININE 0.9 mg/dL (0.55-1.3)
[2020-09-16 09:35] LABS: PHOSPHOROUS 3.8 mg/dL (2.5-4.9)
[2020-09-16 09:37] LABS: ALK PHOS 73 U/L (45-117); BILIRUBIN,TOTAL 0.6 mg/dL (0.2-1); TOT PROT 5.6 g/dl (6.4-8.2)
[2020-09-16 10:06] LABS: LDH 344 U/L (84-246); SGOT/AST 21 U/L (15-37)
[2020-09-16] MEDS: LOSARTAN POTASSIUM 25 MG TABLET PO SCH ×2 (11:12→21:07)
[2020-09-17] MEDS: INSULIN (LEVEMIR) 100 UNITS/ML UNITS SQ SCH ×2 (06:00→21:14)
[2020-09-17] MEDS: INSULIN SLIDING SCALE (NOVOLOG) 1 VIAL SQ SCH ×4 (06:00→21:15)
[2020-09-17] MEDS: ALBUTEROL SO4 HFA INHALER IH SCH ×4 (09:31→21:14)
[2020-09-17] MEDS: ALBUTEROL SO4 HFA INHALER IH PRN ×3 (09:33→17:58)
[2020-09-17] MEDS: ENOXAPARIN NA (PORCINE) 80 MG/0.8 ML DISP.SYRIN SQ SCH (09:33)
[2020-09-17] MEDS: PANTOPRAZOLE SODIUM 40 MG VIAL IVPUSH SCH (09:34)
[2020-09-17] MEDS: ASPIRIN 81 MG CHEWABLE TABLETS PO SCH (09:34)
[2020-09-17] MEDS: DEXAMETHASONE SOD PHOSPHATE 4 MG/1 ML VIAL IVPUSH SCH (09:34)
[2020-09-17] MEDS: LOSARTAN POTASSIUM 25 MG TABLET PO SCH ×2 (09:35→21:13)
[2020-09-17] MEDS: ASCORBIC ACID 500 MG TABLET (FP) PO SCH ×2 (09:35→21:13)
[2020-09-17] MEDS: CHOLECALCIFEROL (VIT D3) 1,000 UNIT (25 MCG) TABLET PO SCH (09:35)
[2020-09-17] MEDS: amLODIPine BESYLATE 5 MG TABLET (FP) PO SCH (09:35)
[2020-09-17] MEDS: ZINC SULFATE 220 MG CAPSULE (FP) PO SCH (09:36)
[2020-09-17 10:23] LABS: BASO % 0.2 % (0-2.0); EOS % 0.2 % (0-4.5); HEMATOCRIT 38.8 % (32.4-45.2); HEMOGLOBIN 13.2 GM/dL (10.7-15.3); LYMPH % 8.4 % (8-40); MCHC 34.1 g/dl (32.0-36.0); MEAN CELL VOLUME 84.9 fl (80-96); MEAN PLT VOLUME 8.3 fl (7.5-11.1); MONO % 5.4 % (3.8-10.2); NEUT % 85.8 % (42.8-82.8); PLATELET COUNT 312 K/MM3 (134-434); RBC 4.56 M/mm3 (3.60-5.2); RDW 14.3 % (11.6-15.6); WHITE BLOOD COUNT 11.4 K/mm3 (4.0-10.0)
[2020-09-17 11:03] LABS: CHLORIDE 109 mmol/L (98-107); POTASSIUM 4.9 mmol/L (3.5-5.1); SODIUM 141 mmol/L (136-145)
[2020-09-17 11:05] LABS: ALBUMIN 2.6 g/dl (3.4-5.0); ANION GAP 10 MMOL/L (8-16); BLOOD UREA NITROGEN 43.7 mg/dL (7-18); CALCIUM 8.5 mg/dL (8.5-10.1); CO2 22 mmol/L (21-32)
[2020-09-17 11:06] LABS: GLUCOSE,RANDOM 122 mg/dL (74-106); MAGNESIUM 2.7 mg/dL (1.8-2.4)
[2020-09-17 11:08] LABS: SGOT/AST 23 U/L (15-37); SGPT/ALT 39 U/L (13-61)
[2020-09-17 11:09] LABS: CREATININE 0.9 mg/dL (0.55-1.3); PHOSPHOROUS 3.6 mg/dL (2.5-4.9)
[2020-09-17 11:10] LABS: LDH 410 U/L (84-246); TOT PROT 5.7 g/dl (6.4-8.2)
[2020-09-17 11:11] LABS: ALK PHOS 70 U/L (45-117)
[2020-09-17 11:12] LABS: BILIRUBIN,TOTAL 1.2 mg/dL (0.2-1)
[2020-09-17] MEDS: BUDESONIDE/FORMETEROL FUMARATE 160/4.5 mcg INHALER IH SCH ×2 (11:32→21:17)
[2020-09-17] MEDS ORDERED: INSULIN (NOVOLOG) ASPART 100 UNITS/ML 10ML VIAL ONE (20:58)
[2020-09-17] MEDS: MELATONIN 5 MG TABLETS PO PRN (22:26)
[2020-09-18] MEDS: INSULIN (LEVEMIR) 100 UNITS/ML UNITS SQ SCH ×2 (06:01→22:36)
[2020-09-18] MEDS: INSULIN SLIDING SCALE (NOVOLOG) 1 VIAL SQ SCH ×4 (06:02→23:01)
[2020-09-18] MEDS ORDERED: INSULIN (NOVOLOG) ASPART 100 UNITS/ML 10ML VIAL ONE ×2 (06:21→21:17)
[2020-09-18] MEDS: ALBUTEROL SO4 HFA INHALER IH SCH ×4 (09:13→20:37)
[2020-09-18] MEDS: ALBUTEROL SO4 HFA INHALER IH PRN (10:49)
[2020-09-18] MEDS: ASCORBIC ACID 500 MG TABLET (FP) PO SCH ×2 (10:52→22:36)
[2020-09-18] MEDS: PANTOPRAZOLE SODIUM 40 MG VIAL IVPUSH SCH (10:52)
[2020-09-18] MEDS: ASPIRIN 81 MG CHEWABLE TABLETS PO SCH (10:52)
[2020-09-18] MEDS: ZINC SULFATE 220 MG CAPSULE (FP) PO SCH (10:52)
[2020-09-18] MEDS: CHOLECALCIFEROL (VIT D3) 1,000 UNIT (25 MCG) TABLET PO SCH (10:52)
[2020-09-18] MEDS: DEXAMETHASONE SOD PHOSPHATE 4 MG/1 ML VIAL IVPUSH SCH (10:53)
[2020-09-18] MEDS: BUDESONIDE/FORMETEROL FUMARATE 160/4.5 mcg INHALER IH SCH ×2 (11:13→21:57)
[2020-09-18] MEDS: LOSARTAN POTASSIUM 25 MG TABLET PO SCH ×2 (11:18→22:36)
[2020-09-18] MEDS: amLODIPine BESYLATE 5 MG TABLET (FP) PO SCH (11:19)
[2020-09-18] MEDS: MELATONIN 5 MG TABLETS PO PRN (22:36)
[2020-09-18] MEDS: ACETAMINOPHEN 325 MG TABLET (FP) PO PRN (22:55)
[2020-09-19] MEDS: INSULIN (LEVEMIR) 100 UNITS/ML UNITS SQ SCH ×2 (06:18→21:21)
[2020-09-19] MEDS: ACETAMINOPHEN 325 MG TABLET (FP) PO PRN ×2 (06:19→21:20)
[2020-09-19] MEDS: INSULIN SLIDING SCALE (NOVOLOG) 1 VIAL SQ SCH ×4 (06:37→22:48)
[2020-09-19] MEDS: PANTOPRAZOLE SODIUM 40 MG VIAL IVPUSH SCH (09:27)
[2020-09-19] MEDS: DEXAMETHASONE SOD PHOSPHATE 4 MG/1 ML VIAL IVPUSH SCH (09:27)
[2020-09-19] MEDS: LOSARTAN POTASSIUM 25 MG TABLET PO SCH ×4 (09:27→23:35)
[2020-09-19] MEDS: CHOLECALCIFEROL (VIT D3) 1,000 UNIT (25 MCG) TABLET PO SCH (09:27)
[2020-09-19] MEDS: ZINC SULFATE 220 MG CAPSULE (FP) PO SCH (09:27)
[2020-09-19] MEDS: ALBUTEROL SO4 HFA INHALER IH SCH ×4 (09:27→20:23)
[2020-09-19] MEDS: amLODIPine BESYLATE 5 MG TABLET (FP) PO SCH ×2 (09:27→12:23)
[2020-09-19] MEDS: BUDESONIDE/FORMETEROL FUMARATE 160/4.5 mcg INHALER IH SCH ×2 (09:27→21:21)
[2020-09-19] MEDS: ASPIRIN 81 MG CHEWABLE TABLETS PO SCH (09:27)
[2020-09-19] MEDS: ASCORBIC ACID 500 MG TABLET (FP) PO SCH ×2 (09:27→21:21)
[2020-09-19] MEDS ORDERED: INSULIN (NOVOLOG) ASPART 100 UNITS/ML 10ML VIAL ONE ×2 (10:45→19:50)
[2020-09-19] MEDS: MELATONIN 5 MG TABLETS PO PRN (21:21)
[2020-09-20] MEDS: INSULIN (LEVEMIR) 100 UNITS/ML UNITS SQ SCH ×2 (06:24→20:59)
[2020-09-20] MEDS: INSULIN SLIDING SCALE (NOVOLOG) 1 VIAL SQ SCH ×4 (06:25→21:06)
[2020-09-20] MEDS: ALBUTEROL SO4 HFA INHALER IH SCH ×4 (08:15→20:58)
[2020-09-20] MEDS: PANTOPRAZOLE SODIUM 40 MG VIAL IVPUSH SCH (10:13)
[2020-09-20] MEDS: amLODIPine BESYLATE 5 MG TABLET (FP) PO SCH ×2 (10:14→10:41)
[2020-09-20] MEDS: CHOLECALCIFEROL (VIT D3) 1,000 UNIT (25 MCG) TABLET PO SCH (10:14)
[2020-09-20] MEDS: LOSARTAN POTASSIUM 25 MG TABLET PO SCH ×3 (10:14→20:59)
[2020-09-20] MEDS: ZINC SULFATE 220 MG CAPSULE (FP) PO SCH (10:14)
[2020-09-20] MEDS: ASCORBIC ACID 500 MG TABLET (FP) PO SCH ×2 (10:14→21:00)
[2020-09-20] MEDS: DEXAMETHASONE SOD PHOSPHATE 4 MG/1 ML VIAL IVPUSH SCH (10:14)
[2020-09-20] MEDS: ASPIRIN 81 MG CHEWABLE TABLETS PO SCH (10:14)
[2020-09-20] MEDS: BUDESONIDE/FORMETEROL FUMARATE 160/4.5 mcg INHALER IH SCH ×2 (10:15→21:02)
[2020-09-20] MEDS ORDERED: INSULIN (NOVOLOG) ASPART 100 UNITS/ML 10ML VIAL ONE ×2 (11:14→19:33)
[2020-09-20 12:28] LABS: BASO % 0.1 % (0-2.0); HEMATOCRIT 32.8 % (32.4-45.2); HEMOGLOBIN 11.3 GM/dL (10.7-15.3); LYMPH % 8.4 % (8-40); MCH 29.8 pg (25.7-33.7); MCHC 34.4 g/dl (32.0-36.0); MEAN CELL VOLUME 86.4 fl (80-96); MEAN PLT VOLUME 8.3 fl (7.5-11.1); MONO % 4.9 % (3.8-10.2); NEUT % 85.6 % (42.8-82.8); PLATELET COUNT 190 K/MM3 (134-434); RDW 14.1 % (11.6-15.6); WHITE BLOOD COUNT 10.6 K/mm3 (4.0-10.0)
[2020-09-20 12:32] LABS: POTASSIUM 4.8 mmol/L (3.5-5.1)
[2020-09-20 12:36] LABS: ALBUMIN 2.5 g/dl (3.4-5.0); BLOOD UREA NITROGEN 33.6 mg/dL (7-18); CALCIUM 8.2 mg/dL (8.5-10.1)
[2020-09-20 12:39] LABS: CREATININE 0.8 mg/dL (0.55-1.3)
[2020-09-20 12:40] LABS: TOT PROT 5.2 g/dl (6.4-8.2)
[2020-09-20 12:47] LABS: BILIRUBIN,TOTAL 0.6 mg/dL (0.2-1)
[2020-09-20] MEDS: ACETAMINOPHEN 325 MG TABLET (FP) PO PRN (21:00)
[2020-09-20] MEDS: MELATONIN 5 MG TABLETS PO PRN (21:00)
[2020-09-21] MEDS: INSULIN (LEVEMIR) 100 UNITS/ML UNITS SQ SCH ×2 (06:03→21:40)
[2020-09-21] MEDS: INSULIN SLIDING SCALE (NOVOLOG) 1 VIAL SQ SCH ×4 (06:04→21:41)
[2020-09-21 07:29] LABS: BASO % 0.1 % (0-2.0); EOS % 0.5 % (0-4.5); HEMATOCRIT 33.4 % (32.4-45.2); HEMOGLOBIN 11.6 GM/dL (10.7-15.3); LYMPH % 9.2 % (8-40); MCH 29.4 pg (25.7-33.7); MCHC 34.8 g/dl (32.0-36.0); MEAN CELL VOLUME 84.3 fl (80-96); MONO % 3.7 % (3.8-10.2); NEUT % 86.5 % (42.8-82.8); PLATELET COUNT 179 K/MM3 (134-434); RBC 3.96 M/mm3 (3.60-5.2); RDW 14.2 % (11.6-15.6); WHITE BLOOD COUNT 11.2 K/mm3 (4.0-10.0)
[2020-09-21 08:13] LABS: POTASSIUM 4.9 mmol/L (3.5-5.1)
[2020-09-21 08:19] LABS: BLOOD UREA NITROGEN 29.5 mg/dL (7-18); CALCIUM 8.5 mg/dL (8.5-10.1)
[2020-09-21 08:24] LABS: CREATININE 0.7 mg/dL (0.55-1.3)
[2020-09-21] MEDS: ALBUTEROL SO4 HFA INHALER IH SCH ×4 (09:00→21:37)
[2020-09-21] MEDS: ZINC SULFATE 220 MG CAPSULE (FP) PO SCH (10:37)
[2020-09-21] MEDS: CHOLECALCIFEROL (VIT D3) 1,000 UNIT (25 MCG) TABLET PO SCH (10:37)
[2020-09-21] MEDS: PANTOPRAZOLE SODIUM 40 MG VIAL IVPUSH SCH (10:38)
[2020-09-21] MEDS: LOSARTAN POTASSIUM 25 MG TABLET PO SCH ×2 (10:38→21:45)
[2020-09-21] MEDS: ASPIRIN 81 MG CHEWABLE TABLETS PO SCH (10:38)
[2020-09-21] MEDS: amLODIPine BESYLATE 5 MG TABLET (FP) PO SCH (10:38)
[2020-09-21] MEDS: ASCORBIC ACID 500 MG TABLET (FP) PO SCH ×2 (10:38→21:39)
[2020-09-21] MEDS: DEXAMETHASONE SOD PHOSPHATE 4 MG/1 ML VIAL IVPUSH SCH (10:38)
[2020-09-21] MEDS: ENOXAPARIN NA (PORCINE) 40 MG/0.4 ML DISP.SYRIN SQ SCH (10:38)
[2020-09-21] MEDS: BUDESONIDE/FORMETEROL FUMARATE 160/4.5 mcg INHALER IH SCH ×2 (10:38→21:44)
[2020-09-21] MEDS: MELATONIN 5 MG TABLETS PO PRN (21:40)
[2020-09-22] MEDS: INSULIN (LEVEMIR) 100 UNITS/ML UNITS SQ SCH ×2 (06:00→22:06)
[2020-09-22] MEDS: INSULIN SLIDING SCALE (NOVOLOG) 1 VIAL SQ SCH ×4 (06:00→22:06)
[2020-09-22] MEDS: ZINC SULFATE 220 MG CAPSULE (FP) PO SCH (10:12)
[2020-09-22] MEDS: ASCORBIC ACID 500 MG TABLET (FP) PO SCH ×2 (10:12→22:05)
[2020-09-22] MEDS: ENOXAPARIN NA (PORCINE) 40 MG/0.4 ML DISP.SYRIN SQ SCH (10:13)
[2020-09-22] MEDS: CHOLECALCIFEROL (VIT D3) 1,000 UNIT (25 MCG) TABLET PO SCH (10:13)
[2020-09-22] MEDS: amLODIPine BESYLATE 5 MG TABLET (FP) PO SCH (10:18)
[2020-09-22] MEDS: LOSARTAN POTASSIUM 25 MG TABLET PO SCH ×2 (10:19→22:05)
[2020-09-22] MEDS: ASPIRIN 81 MG CHEWABLE TABLETS PO SCH (10:19)
[2020-09-22] MEDS: BUDESONIDE/FORMETEROL FUMARATE 160/4.5 mcg INHALER IH SCH ×2 (10:19→22:07)
[2020-09-22] MEDS: ALBUTEROL SO4 HFA INHALER IH SCH ×4 (10:19→22:06)
[2020-09-22] MEDS: PANTOPRAZOLE SODIUM 40 MG VIAL IVPUSH SCH (10:34)
[2020-09-22] MEDS: DEXAMETHASONE SOD PHOSPHATE 4 MG/1 ML VIAL IVPUSH SCH (10:34)
[2020-09-22] MEDS ORDERED: ENOXAPARIN NA (PORCINE) 40 MG/0.4 ML DISP.SYRIN SQ SCH (22:00)
[2020-09-22] MEDS: MELATONIN 5 MG TABLETS PO PRN (22:05)
[2020-09-23] MEDS: INSULIN (LEVEMIR) 100 UNITS/ML UNITS SQ SCH ×2 (06:55→21:37)
[2020-09-23] MEDS: INSULIN SLIDING SCALE (NOVOLOG) 1 VIAL SQ SCH ×5 (06:56→21:38)
[2020-09-23] MEDS: DEXAMETHASONE SOD PHOSPHATE 4 MG/1 ML VIAL IVPUSH SCH (11:11)
[2020-09-23] MEDS: LOSARTAN POTASSIUM 25 MG TABLET PO SCH ×3 (11:12→21:32)
[2020-09-23] MEDS: PANTOPRAZOLE SODIUM 40 MG VIAL IVPUSH SCH (11:12)
[2020-09-23] MEDS: ASCORBIC ACID 500 MG TABLET (FP) PO SCH ×2 (11:12→21:32)
[2020-09-23] MEDS: amLODIPine BESYLATE 5 MG TABLET (FP) PO SCH ×2 (11:13→11:48)
[2020-09-23] MEDS: CHOLECALCIFEROL (VIT D3) 1,000 UNIT (25 MCG) TABLET PO SCH (11:13)
[2020-09-23] MEDS: ZINC SULFATE 220 MG CAPSULE (FP) PO SCH (11:13)
[2020-09-23] MEDS: BUDESONIDE/FORMETEROL FUMARATE 160/4.5 mcg INHALER IH SCH ×2 (11:13→21:37)
[2020-09-23] MEDS: ENOXAPARIN NA (PORCINE) 80 MG/0.8 ML DISP.SYRIN SQ SCH ×2 (11:17→21:32)
[2020-09-23] MEDS: ASPIRIN 81 MG CHEWABLE TABLETS PO SCH (11:17)
[2020-09-23] MEDS: ALBUTEROL SO4 HFA INHALER IH SCH ×4 (11:43→20:25)
[2020-09-23] MEDS ORDERED: INSULIN (NOVOLOG) ASPART 100 UNITS/ML 10ML VIAL ONE (20:47)
[2020-09-23] MEDS: MELATONIN 5 MG TABLETS PO PRN (21:32)
[2020-09-23] MEDS: ACETAMINOPHEN 325 MG TABLET (FP) PO PRN (21:33)
[2020-09-24] MEDS: INSULIN (LEVEMIR) 100 UNITS/ML UNITS SQ SCH ×2 (06:12→21:43)
[2020-09-24] MEDS: INSULIN SLIDING SCALE (NOVOLOG) 1 VIAL SQ SCH ×4 (06:12→21:44)
[2020-09-24] MEDS ORDERED: INSULIN (NOVOLOG) ASPART 100 UNITS/ML 10ML VIAL ONE (06:22)
[2020-09-24] MEDS: PANTOPRAZOLE SODIUM 40 MG VIAL IVPUSH SCH (10:38)
[2020-09-24] MEDS: ASCORBIC ACID 500 MG TABLET (FP) PO SCH ×2 (10:39→21:41)
[2020-09-24] MEDS: DEXAMETHASONE SOD PHOSPHATE 4 MG/1 ML VIAL IVPUSH SCH (10:39)
[2020-09-24] MEDS: ENOXAPARIN NA (PORCINE) 80 MG/0.8 ML DISP.SYRIN SQ SCH ×2 (10:39→21:40)
[2020-09-24] MEDS: CHOLECALCIFEROL (VIT D3) 1,000 UNIT (25 MCG) TABLET PO SCH (10:40)
[2020-09-24] MEDS: LOSARTAN POTASSIUM 25 MG TABLET PO SCH ×2 (10:40→21:41)
[2020-09-24] MEDS: ZINC SULFATE 220 MG CAPSULE (FP) PO SCH (10:40)
[2020-09-24] MEDS: amLODIPine BESYLATE 5 MG TABLET (FP) PO SCH (10:40)
[2020-09-24] MEDS: ALBUTEROL SO4 HFA INHALER IH SCH ×4 (10:41→20:50)
[2020-09-24] MEDS: BUDESONIDE/FORMETEROL FUMARATE 160/4.5 mcg INHALER IH SCH ×2 (10:41→21:45)
[2020-09-24] MEDS: ASPIRIN 81 MG CHEWABLE TABLETS PO SCH (10:41)
[2020-09-24] MEDS: MELATONIN 5 MG TABLETS PO PRN (21:41)
[2020-09-24] MEDS: ACETAMINOPHEN 325 MG TABLET (FP) PO PRN (21:41)
[2020-09-25] MEDS: INSULIN (LEVEMIR) 100 UNITS/ML UNITS SQ SCH ×2 (06:11→22:13)
[2020-09-25] MEDS: INSULIN SLIDING SCALE (NOVOLOG) 1 VIAL SQ SCH ×4 (06:12→22:13)
[2020-09-25] MEDS ORDERED: INSULIN (NOVOLOG) ASPART 100 UNITS/ML 10ML VIAL ONE (06:25)
[2020-09-25] MEDS: ENOXAPARIN NA (PORCINE) 80 MG/0.8 ML DISP.SYRIN SQ SCH ×2 (11:31→22:00)
[2020-09-25] MEDS: amLODIPine BESYLATE 5 MG TABLET (FP) PO SCH (11:31)
[2020-09-25] MEDS: LOSARTAN POTASSIUM 25 MG TABLET PO SCH (11:31)
[2020-09-25] MEDS: ALBUTEROL SO4 HFA INHALER IH SCH ×4 (11:31→20:32)
[2020-09-25] MEDS: ASPIRIN 81 MG CHEWABLE TABLETS PO SCH (11:31)
[2020-09-25] MEDS: ASCORBIC ACID 500 MG TABLET (FP) PO SCH ×2 (11:32→22:02)
[2020-09-25] MEDS: BUDESONIDE/FORMETEROL FUMARATE 160/4.5 mcg INHALER IH SCH ×2 (11:32→22:15)
[2020-09-25] MEDS: CHOLECALCIFEROL (VIT D3) 1,000 UNIT (25 MCG) TABLET PO SCH (11:32)
[2020-09-25] MEDS: ZINC SULFATE 220 MG CAPSULE (FP) PO SCH (11:33)
[2020-09-25] MEDS: PANTOPRAZOLE SODIUM 40 MG VIAL IVPUSH SCH (11:34)
[2020-09-25] MEDS: DEXAMETHASONE SOD PHOSPHATE 4 MG/1 ML VIAL IVPUSH SCH (11:34)
[2020-09-25 13:20] LABS: BASO % 0.5 % (0-2.0); EOS % 1.9 % (0-4.5); HEMOGLOBIN 12.4 GM/dL (10.7-15.3); LYMPH % 8.1 % (8-40); MCH 29.6 pg (25.7-33.7); MCHC 33.5 g/dl (32.0-36.0); MEAN CELL VOLUME 88.5 fl (80-96); MEAN PLT VOLUME 8.2 fl (7.5-11.1); MONO % 2.2 % (3.8-10.2); NEUT % 87.3 % (42.8-82.8); PLATELET COUNT 157 K/MM3 (134-434); RBC 4.18 M/mm3 (3.60-5.2); RDW 14.9 % (11.6-15.6); WHITE BLOOD COUNT 13.5 K/mm3 (4.0-10.0)
[2020-09-25 13:54] LABS: CHLORIDE 109 mmol/L (98-107); POTASSIUM 4.4 mmol/L (3.5-5.1); SODIUM 143 mmol/L (136-145)
[2020-09-25 13:56] LABS: CALCIUM 8.7 mg/dL (8.5-10.1)
[2020-09-25 13:57] LABS: ALBUMIN 2.7 g/dl (3.4-5.0); ANION GAP 9 MMOL/L (8-16); BLOOD UREA NITROGEN 26.8 mg/dL (7-18); CO2 25 mmol/L (21-32); GLUCOSE,RANDOM 91 mg/dL (74-106)
[2020-09-25 14:00] LABS: CREATININE 0.6 mg/dL (0.55-1.3); SGOT/AST 15 U/L (15-37); SGPT/ALT 42 U/L (13-61)
[2020-09-25 14:01] LABS: BILIRUBIN,TOTAL 0.6 mg/dL (0.2-1)
[2020-09-25 14:02] LABS: LDH 392 U/L (84-246); TOT PROT 5.5 g/dl (6.4-8.2)
[2020-09-25 14:03] LABS: ALK PHOS 75 U/L (45-117)
[2020-09-25 16:01] LABS: VENOUS BASE EXCESS 1.4 mmol/L (-2-2); VENOUS O2 SATURATION 91.3 % (70-80); VENOUS PCO2 37.2 mmHg (38-52); VENOUS PH 7.449 (7.310-7.410)
[2020-09-25] MEDS ORDERED: MORPHINE SULFATE 2 MG/ML VIAL IVPUSH ONE (20:19)
[2020-09-26] MEDS ORDERED: ALBUTEROL SO4 HFA INHALER IH PRN (00:33)
[2020-09-26] MEDS: INSULIN SLIDING SCALE (NOVOLOG) 1 VIAL SQ SCH ×4 (07:07→22:11)
[2020-09-26] MEDS: INSULIN (LEVEMIR) 100 UNITS/ML UNITS SQ SCH ×2 (08:00→22:10)
[2020-09-26] MEDS: ASPIRIN 81 MG CHEWABLE TABLETS PO SCH (09:15)
[2020-09-26] MEDS: DEXAMETHASONE SOD PHOSPHATE 4 MG/1 ML VIAL IVPUSH SCH (09:15)
[2020-09-26] MEDS: ALBUTEROL SO4 HFA INHALER IH SCH ×4 (09:15→19:45)
[2020-09-26] MEDS: BUDESONIDE/FORMETEROL FUMARATE 160/4.5 mcg INHALER IH SCH ×2 (09:16→22:11)
[2020-09-26] MEDS: CHOLECALCIFEROL (VIT D3) 1,000 UNIT (25 MCG) TABLET PO SCH (09:16)
[2020-09-26] MEDS: ASCORBIC ACID 500 MG TABLET (FP) PO SCH ×2 (09:16→22:11)
[2020-09-26] MEDS: ENOXAPARIN NA (PORCINE) 80 MG/0.8 ML DISP.SYRIN SQ SCH (09:16)
[2020-09-26] MEDS: PANTOPRAZOLE SODIUM 40 MG VIAL IVPUSH SCH (09:17)
[2020-09-26] MEDS: ZINC SULFATE 220 MG CAPSULE (FP) PO SCH (09:17)
[2020-09-26] MEDS ORDERED: SODIUM PHOSPHATE/NA BIPHOS 133 ML ENEMA PR ONE (19:41)
[2020-09-26] MEDS ORDERED: MINERAL OIL ENEMA 133 ML ENEMA PR ONE (19:59)
[2020-09-26] MEDS: POLYETHYLENE GLYCOL 3350 119 GM BTL PO SCH (20:00)
[2020-09-26] MEDS: DOCUSATE SODIUM 100 MG CAPSULE (FP) PO SCH (20:00)
[2020-09-26] MEDS ORDERED: MORPHINE SULFATE 2 MG/ML VIAL IVPUSH ONE ×2 (20:09→20:24)
[2020-09-26] MEDS ORDERED: LORazepam 2 MG/ML SDV VIAL IVPUSH ONE (20:17)
[2020-09-26 22:27] LABS: ARTERIAL BLD GAS O2 SATURATION 97.4 mmHg (95-98); ARTERIAL BLOOD GAS BASE EXCESS -4.8 mmol/L (-2-2); ARTERIAL BLOOD GAS PO2 97.6 mmHg (80-100); ARTERIAL BLOOD GAS pH 7.389 (7.350-7.450)
[2020-09-27] MEDS: INSULIN (LEVEMIR) 100 UNITS/ML UNITS SQ SCH ×2 (06:58→21:55)
[2020-09-27] MEDS: INSULIN SLIDING SCALE (NOVOLOG) 1 VIAL SQ SCH ×4 (06:59→21:54)
[2020-09-27] MEDS: DEXAMETHASONE SOD PHOSPHATE 4 MG/1 ML VIAL IVPUSH SCH (09:37)
[2020-09-27] MEDS: PANTOPRAZOLE SODIUM 40 MG VIAL IVPUSH SCH (09:37)
[2020-09-27] MEDS: ZINC SULFATE 220 MG CAPSULE (FP) PO SCH (09:37)
[2020-09-27] MEDS: ASPIRIN 81 MG CHEWABLE TABLETS PO SCH (09:37)
[2020-09-27] MEDS: DOCUSATE SODIUM 100 MG CAPSULE (FP) PO SCH (09:37)
[2020-09-27] MEDS: ALBUTEROL SO4 HFA INHALER IH SCH ×4 (09:37→20:45)
[2020-09-27] MEDS: ASCORBIC ACID 500 MG TABLET (FP) PO SCH ×2 (09:37→21:37)
[2020-09-27] MEDS: CHOLECALCIFEROL (VIT D3) 1,000 UNIT (25 MCG) TABLET PO SCH (09:38)
[2020-09-27] MEDS: POLYETHYLENE GLYCOL 3350 119 GM BTL PO SCH (09:38)
[2020-09-27] MEDS: BUDESONIDE/FORMETEROL FUMARATE 160/4.5 mcg INHALER IH SCH ×2 (09:38→21:37)
[2020-09-27] MEDS: ENOXAPARIN NA (PORCINE) 80 MG/0.8 ML DISP.SYRIN SQ SCH (21:37)
[2020-09-28] MEDS: INSULIN SLIDING SCALE (NOVOLOG) 1 VIAL SQ SCH ×4 (07:02→21:58)
[2020-09-28] MEDS: INSULIN (LEVEMIR) 100 UNITS/ML UNITS SQ SCH ×2 (07:02→21:54)
[2020-09-28 08:48] LABS: BASO % 0.1 % (0-2.0); EOS % 2.1 % (0-4.5); HEMATOCRIT 34.3 % (32.4-45.2); HEMOGLOBIN 11.8 GM/dL (10.7-15.3); LYMPH % 10.3 % (8-40); MCH 30.5 pg (25.7-33.7); MCHC 34.4 g/dl (32.0-36.0); MEAN CELL VOLUME 88.7 fl (80-96); MEAN PLT VOLUME 7.9 fl (7.5-11.1); MONO % 3.5 % (3.8-10.2); PLATELET COUNT 141 K/MM3 (134-434); RBC 3.87 M/mm3 (3.60-5.2); RDW 15.5 % (11.6-15.6); WHITE BLOOD COUNT 9.6 K/mm3 (4.0-10.0)
[2020-09-28 08:54] LABS: POTASSIUM 4.1 mmol/L (3.5-5.1)
[2020-09-28 08:56] LABS: CALCIUM 8.4 mg/dL (8.5-10.1)
[2020-09-28 08:57] LABS: ALBUMIN 2.8 g/dl (3.4-5.0); BLOOD UREA NITROGEN 26.1 mg/dL (7-18)
[2020-09-28 09:00] LABS: CREATININE 0.7 mg/dL (0.55-1.3)
[2020-09-28 09:01] LABS: BILIRUBIN,TOTAL 0.7 mg/dL (0.2-1); TOT PROT 5.2 g/dl (6.4-8.2)
[2020-09-28] MEDS: CHOLECALCIFEROL (VIT D3) 1,000 UNIT (25 MCG) TABLET PO SCH (09:53)
[2020-09-28] MEDS: PANTOPRAZOLE SODIUM 40 MG VIAL IVPUSH SCH (09:53)
[2020-09-28] MEDS: DEXAMETHASONE SOD PHOSPHATE 4 MG/1 ML VIAL IVPUSH SCH (09:53)
[2020-09-28] MEDS: DOCUSATE SODIUM 100 MG CAPSULE (FP) PO SCH (09:53)
[2020-09-28] MEDS: ASCORBIC ACID 500 MG TABLET (FP) PO SCH ×2 (09:53→21:52)
[2020-09-28] MEDS: ASPIRIN 81 MG CHEWABLE TABLETS PO SCH (09:53)
[2020-09-28] MEDS: ENOXAPARIN NA (PORCINE) 80 MG/0.8 ML DISP.SYRIN SQ SCH ×2 (09:53→21:53)
[2020-09-28] MEDS: ZINC SULFATE 220 MG CAPSULE (FP) PO SCH (09:53)
[2020-09-28] MEDS: ALBUTEROL SO4 HFA INHALER IH SCH ×4 (09:54→22:12)
[2020-09-28] MEDS: BUDESONIDE/FORMETEROL FUMARATE 160/4.5 mcg INHALER IH SCH ×2 (09:55→22:12)
[2020-09-28] MEDS: POLYETHYLENE GLYCOL 3350 119 GM BTL PO SCH (09:56)
[2020-09-28] MEDS: ACETAMINOPHEN 325 MG TABLET (FP) PO PRN (21:52)
[2020-09-28] MEDS: MELATONIN 5 MG TABLETS PO PRN (21:52)
[2020-09-29] MEDS: INSULIN SLIDING SCALE (NOVOLOG) 1 VIAL SQ SCH ×4 (06:52→22:05)
[2020-09-29] MEDS: INSULIN (LEVEMIR) 100 UNITS/ML UNITS SQ SCH ×2 (06:53→22:04)
[2020-09-29 07:55] LABS: POTASSIUM 4.1 mmol/L (3.5-5.1)
[2020-09-29 07:59] LABS: BLOOD UREA NITROGEN 23.3 mg/dL (7-18)
[2020-09-29 08:02] LABS: CALCIUM 8.9 mg/dL (8.5-10.1); CREATININE 0.6 mg/dL (0.55-1.3)
[2020-09-29 08:04] LABS: BASO % 0.2 % (0-2.0); EOS % 1.2 % (0-4.5); HEMATOCRIT 35.9 % (32.4-45.2); HEMOGLOBIN 12.2 GM/dL (10.7-15.3); LYMPH % 8.7 % (8-40); MCH 30.4 pg (25.7-33.7); MCHC 34.1 g/dl (32.0-36.0); MEAN CELL VOLUME 89.1 fl (80-96); MEAN PLT VOLUME 7.8 fl (7.5-11.1); MONO % 3.6 % (3.8-10.2); NEUT % 86.3 % (42.8-82.8); PLATELET COUNT 142 K/MM3 (134-434); RBC 4.02 M/mm3 (3.60-5.2); RDW 15.9 % (11.6-15.6); WHITE BLOOD COUNT 11.2 K/mm3 (4.0-10.0)
[2020-09-29] MEDS: ALBUTEROL SO4 HFA INHALER IH SCH ×4 (10:30→21:44)
[2020-09-29] MEDS: ZINC SULFATE 220 MG CAPSULE (FP) PO SCH (11:04)
[2020-09-29] MEDS: PANTOPRAZOLE SODIUM 40 MG VIAL IVPUSH SCH (11:06)
[2020-09-29] MEDS: POLYETHYLENE GLYCOL 3350 119 GM BTL PO SCH (11:06)
[2020-09-29] MEDS: DEXAMETHASONE SOD PHOSPHATE 4 MG/1 ML VIAL IVPUSH SCH (11:06)
[2020-09-29] MEDS: ASCORBIC ACID 500 MG TABLET (FP) PO SCH ×2 (11:07→21:49)
[2020-09-29] MEDS: DOCUSATE SODIUM 100 MG CAPSULE (FP) PO SCH (11:07)
[2020-09-29] MEDS: ASPIRIN 81 MG CHEWABLE TABLETS PO SCH (11:08)
[2020-09-29] MEDS: ENOXAPARIN NA (PORCINE) 80 MG/0.8 ML DISP.SYRIN SQ SCH ×2 (11:08→21:49)
[2020-09-29] MEDS: CHOLECALCIFEROL (VIT D3) 1,000 UNIT (25 MCG) TABLET PO SCH (11:09)
[2020-09-29] MEDS: BUDESONIDE/FORMETEROL FUMARATE 160/4.5 mcg INHALER IH SCH ×2 (11:10→21:45)
[2020-09-29] MEDS: ACETAMINOPHEN 325 MG TABLET (FP) PO PRN (11:10)
[2020-09-29] MEDS: MELATONIN 5 MG TABLETS PO PRN (21:49)
[2020-09-30] MEDS: INSULIN SLIDING SCALE (NOVOLOG) 1 VIAL SQ SCH ×4 (06:34→22:08)
[2020-09-30] MEDS: INSULIN (LEVEMIR) 100 UNITS/ML UNITS SQ SCH ×2 (06:38→22:07)
[2020-09-30 08:47] LABS: BASO % 0.2 % (0-2.0); EOS % 1.8 % (0-4.5); HEMOGLOBIN 11.8 GM/dL (10.7-15.3); LYMPH % 9.7 % (8-40); MCH 30.8 pg (25.7-33.7); MCHC 33.9 g/dl (32.0-36.0); MONO % 4.1 % (3.8-10.2); NEUT % 84.2 % (42.8-82.8); PLATELET COUNT 142 K/MM3 (134-434); RBC 3.85 M/mm3 (3.60-5.2); RDW 17.3 % (11.6-15.6); WHITE BLOOD COUNT 9.8 K/mm3 (4.0-10.0)
[2020-09-30 09:23] LABS: BLOOD UREA NITROGEN 18.3 mg/dL (7-18); CALCIUM 8.3 mg/dL (8.5-10.1)
[2020-09-30 09:26] LABS: CREATININE 0.6 mg/dL (0.55-1.3)
[2020-09-30] MEDS ORDERED: PT OWN MED DRAWER 7, Y5N ONE (09:44)
[2020-09-30] MEDS: ALBUTEROL SO4 HFA INHALER IH SCH ×2 (10:19→21:00)
[2020-09-30] MEDS: POLYETHYLENE GLYCOL 3350 119 GM BTL PO SCH (10:20)
[2020-09-30] MEDS: BUDESONIDE/FORMETEROL FUMARATE 160/4.5 mcg INHALER IH SCH ×2 (10:21→22:34)
[2020-09-30] MEDS: ASPIRIN 81 MG CHEWABLE TABLETS PO SCH (10:21)
[2020-09-30] MEDS: ZINC SULFATE 220 MG CAPSULE (FP) PO SCH (10:21)
[2020-09-30] MEDS: DOCUSATE SODIUM 100 MG CAPSULE (FP) PO SCH (10:21)
[2020-09-30] MEDS: ASCORBIC ACID 500 MG TABLET (FP) PO SCH ×2 (10:21→22:09)
[2020-09-30] MEDS: DEXAMETHASONE SOD PHOSPHATE 4 MG/1 ML VIAL IVPUSH SCH (10:21)
[2020-09-30] MEDS: PANTOPRAZOLE SODIUM 40 MG VIAL IVPUSH SCH (10:21)
[2020-09-30] MEDS: CHOLECALCIFEROL (VIT D3) 1,000 UNIT (25 MCG) TABLET PO SCH (10:21)
[2020-09-30] MEDS: ACETAMINOPHEN 325 MG TABLET (FP) PO PRN (10:22)
[2020-09-30] MEDS: ENOXAPARIN NA (PORCINE) 80 MG/0.8 ML DISP.SYRIN SQ SCH ×2 (10:23→22:08)
[2020-09-30] MEDS ORDERED: MORPHINE SULFATE 2 MG/ML VIAL ONE (11:38)
[2020-09-30] MEDS ORDERED: MORPHINE SULFATE 2 MG/ML VIAL IVPUSH ONE ×2 (12:00→15:42)
[2020-09-30 12:14] LABS: ARTERIAL BLD GAS O2 SATURATION 94.3 mmHg (95-98); ARTERIAL BLOOD GAS PO2 68.5 mmHg (80-100); ARTERIAL BLOOD GAS pH 7.427 (7.350-7.450)
[2020-09-30] MEDS ORDERED: MORPHINE SULFATE 2 MG/ML VIAL IM ONE (14:06)
[2020-09-30 14:35] LABS: ARTERIAL BLD GAS O2 SATURATION 92.9 mmHg (95-98); ARTERIAL BLOOD GAS BASE EXCESS -0.4 mmol/L (-2-2); ARTERIAL BLOOD GAS PO2 64.1 mmHg (80-100); ARTERIAL BLOOD GAS pH 7.419 (7.350-7.450)
[2020-09-30 14:36] LABS: ALLENS TEST POSITIVE
[2020-09-30] MEDS: DEXMEDETOMIDINE IN 0.9 % NACL 400 MCG/100 ML VIAL IVPB SCH (15:37)
[2020-10-01] MEDS: INSULIN SLIDING SCALE (NOVOLOG) 1 VIAL SQ SCH ×4 (06:25→21:13)
[2020-10-01] MEDS: INSULIN (LEVEMIR) 100 UNITS/ML UNITS SQ SCH ×2 (06:28→21:13)
[2020-10-01 07:24] LABS: BASO % 0.4 % (0-2.0); EOS % 1.7 % (0-4.5); HEMATOCRIT 33.9 % (32.4-45.2); HEMOGLOBIN 11.5 GM/dL (10.7-15.3); MCH 30.9 pg (25.7-33.7); MCHC 33.9 g/dl (32.0-36.0); MEAN CELL VOLUME 91.1 fl (80-96); MEAN PLT VOLUME 7.8 fl (7.5-11.1); MONO % 2.9 % (3.8-10.2); PLATELET COUNT 125 K/MM3 (134-434); RBC 3.72 M/mm3 (3.60-5.2); RDW 17.9 % (11.6-15.6); WHITE BLOOD COUNT 7.6 K/mm3 (4.0-10.0)
[2020-10-01 07:54] LABS: CALCIUM 8.1 mg/dL (8.5-10.1)
[2020-10-01 07:55] LABS: ALBUMIN 2.6 g/dl (3.4-5.0); BLOOD UREA NITROGEN 18.2 mg/dL (7-18); MAGNESIUM 2.3 mg/dL (1.8-2.4)
[2020-10-01 07:56] LABS: CREATININE 0.5 mg/dL (0.55-1.3)
[2020-10-01 07:57] LABS: PHOSPHOROUS 3.8 mg/dL (2.5-4.9)
[2020-10-01 07:58] LABS: BILIRUBIN,TOTAL 0.8 mg/dL (0.2-1); TOT PROT 4.9 g/dl (6.4-8.2)
[2020-10-01] MEDS ORDERED: ENOXAPARIN NA (PORCINE) 80 MG/0.8 ML DISP.SYRIN SQ SCH (10:00)
[2020-10-01] MEDS: ENOXAPARIN NA (PORCINE) 80 MG/0.8 ML DISP.SYRIN SQ SCH ×2 (10:45→21:17)
[2020-10-01] MEDS: DEXAMETHASONE SOD PHOSPHATE 4 MG/1 ML VIAL IVPUSH SCH (10:46)
[2020-10-01] MEDS: PANTOPRAZOLE SODIUM 40 MG VIAL IVPUSH SCH (10:46)
[2020-10-01] MEDS: DEXMEDETOMIDINE IN 0.9 % NACL 400 MCG/100 ML VIAL IVPB SCH ×2 (11:09→13:44)
[2020-10-01] MEDS ORDERED: ALPRAZolam 1 MG TABLET PO PRN (12:03)
[2020-10-01] MEDS ORDERED: AMINO ACIDS 4.25%/D5W 1,000 ML IV SCH (12:15)
[2020-10-01] MEDS: ASPIRIN 81 MG CHEWABLE TABLETS PO SCH (12:19)
[2020-10-01] MEDS: POLYETHYLENE GLYCOL 3350 119 GM BTL PO SCH (12:19)
[2020-10-01] MEDS: DOCUSATE SODIUM 100 MG CAPSULE (FP) PO SCH (12:19)
[2020-10-01] MEDS: CHOLECALCIFEROL (VIT D3) 1,000 UNIT (25 MCG) TABLET PO SCH (12:20)
[2020-10-01] MEDS: ASCORBIC ACID 500 MG TABLET (FP) PO SCH ×2 (12:20→21:18)
[2020-10-01] MEDS: ZINC SULFATE 220 MG CAPSULE (FP) PO SCH (12:20)
[2020-10-01] MEDS ORDERED: MORPHINE SULFATE 2 MG/ML VIAL ONE (12:35)
[2020-10-01] MEDS ORDERED: LORazepam 2 MG/ML SDV VIAL IVPUSH ONE (13:03)
[2020-10-01] MEDS ORDERED: morphine CARPU-JECT 2 MG/1 ML DISP.SYRIN IVPUSH PRN (13:03)
[2020-10-01] MEDS ORDERED: MULTIVIT INJECTION ADULT 10 ML in AMINO ACIDS 4.25%/D5W 1,000 ML IV SCH (13:23)
[2020-10-01] MEDS: BUDESONIDE/FORMETEROL FUMARATE 160/4.5 mcg INHALER IH SCH ×2 (17:22→21:17)
[2020-10-01] MEDS: ALBUTEROL SO4 HFA INHALER IH SCH ×2 (17:22→21:11)
[2020-10-01] MEDS: AMINO ACIDS 4.25%/D5W 1,000 ML IV SCH (17:43)
[2020-10-01] MEDS: MULTIVIT INJ. ADULT COMBO WITH VIT K 1 COMBO 10 ML VIAL IV SCH (17:48)
[2020-10-01] MEDS: MORPHINE SULFATE 2 MG/ML VIAL IVPUSH PRN (21:14)
[2020-10-02] MEDS: DEXMEDETOMIDINE IN 0.9 % NACL 400 MCG/100 ML VIAL IVPB SCH ×2 (01:00→14:15)
[2020-10-02] MEDS: INSULIN (LEVEMIR) 100 UNITS/ML UNITS SQ SCH ×2 (06:11→21:34)
[2020-10-02] MEDS: INSULIN SLIDING SCALE (NOVOLOG) 1 VIAL SQ SCH ×4 (06:12→21:34)
[2020-10-02 07:01] LABS: BASO % 0.2 % (0-2.0); EOS % 0.3 % (0-4.5); HEMATOCRIT 36.1 % (32.4-45.2); HEMOGLOBIN 12.1 GM/dL (10.7-15.3); MCH 30.8 pg (25.7-33.7); MCHC 33.6 g/dl (32.0-36.0); MEAN CELL VOLUME 91.9 fl (80-96); MEAN PLT VOLUME 7.8 fl (7.5-11.1); MONO % 2.2 % (3.8-10.2); NEUT % 91.3 % (42.8-82.8); PLATELET COUNT 128 K/MM3 (134-434); RBC 3.93 M/mm3 (3.60-5.2); RDW 19.1 % (11.6-15.6); WHITE BLOOD COUNT 7.1 K/mm3 (4.0-10.0)
[2020-10-02 07:33] LABS: POTASSIUM 4.3 mmol/L (3.5-5.1)
[2020-10-02 07:41] LABS: ALBUMIN 2.6 g/dl (3.4-5.0)
[2020-10-02 07:42] LABS: BLOOD UREA NITROGEN 26.4 mg/dL (7-18); MAGNESIUM 2.2 mg/dL (1.8-2.4)
[2020-10-02 07:44] LABS: CREATININE 0.6 mg/dL (0.55-1.3); PHOSPHOROUS 4.1 mg/dL (2.5-4.9)
[2020-10-02 07:45] LABS: BILIRUBIN,TOTAL 0.9 mg/dL (0.2-1)
[2020-10-02 07:46] LABS: TOT PROT 5.2 g/dl (6.4-8.2)
[2020-10-02 09:07] LABS: ANISOCYTOSIS 0; MACROCYTOSIS 0; PLATELET ESTIMATE DECREASED
[2020-10-02] MEDS: ENOXAPARIN NA (PORCINE) 80 MG/0.8 ML DISP.SYRIN SQ SCH ×2 (10:23→21:37)
[2020-10-02] MEDS: DEXAMETHASONE SOD PHOSPHATE 4 MG/1 ML VIAL IVPUSH SCH (10:23)
[2020-10-02] MEDS: PANTOPRAZOLE SODIUM 40 MG VIAL IVPUSH SCH (10:23)
[2020-10-02] MEDS: POLYETHYLENE GLYCOL 3350 119 GM BTL PO SCH (10:24)
[2020-10-02] MEDS: BUDESONIDE/FORMETEROL FUMARATE 160/4.5 mcg INHALER IH SCH ×2 (10:24→21:38)
[2020-10-02] MEDS: ASCORBIC ACID 500 MG TABLET (FP) PO SCH ×2 (10:24→21:38)
[2020-10-02] MEDS: ASPIRIN 81 MG CHEWABLE TABLETS PO SCH (10:24)
[2020-10-02] MEDS: DOCUSATE SODIUM 100 MG CAPSULE (FP) PO SCH (10:24)
[2020-10-02] MEDS: ALBUTEROL SO4 HFA INHALER IH SCH ×4 (10:24→21:38)
[2020-10-02] MEDS: ZINC SULFATE 220 MG CAPSULE (FP) PO SCH (10:24)
[2020-10-02] MEDS: CHOLECALCIFEROL (VIT D3) 1,000 UNIT (25 MCG) TABLET PO SCH (10:25)
[2020-10-02] MEDS ORDERED: DEXAMETHASONE SOD PHOSPHATE 4 MG/1 ML VIAL IVPUSH ONE (12:00)
[2020-10-02] MEDS ORDERED: SMOFLIPID - FAT EMUL/SOY/MCT/OLIV/FISH OIL 250 ML EMULSION IV SCH ×2 (13:30→15:00)
[2020-10-02] MEDS ORDERED: FUROSEMIDE 40 MG/4 ML INJECTABLE VIAL IVPUSH ONE (13:46)
[2020-10-02] MEDS ORDERED: LORazepam 2 MG/ML SDV VIAL IVPUSH ONE ×2 (14:27→23:02)
[2020-10-02] MEDS: MORPHINE SULFATE 2 MG/ML VIAL IVPUSH PRN ×2 (18:03→23:00)
[2020-10-02] MEDS: MULTIVIT INJ. ADULT COMBO WITH VIT K 1 COMBO 10 ML VIAL IV SCH (18:03)
[2020-10-02] MEDS: AMINO ACIDS 4.25%/D5W 1,000 ML IV SCH (18:04)
[2020-10-02] MEDS ORDERED: FAT EMUL/SOY/MCT/OLIV/FISH OIL 250 ML IV SCH (22:00)
[2020-10-03] MEDS ORDERED: LORazepam 2 MG/ML SDV VIAL ONE (03:56)
[2020-10-03] MEDS ORDERED: LORazepam 2 MG/ML SDV VIAL IVPUSH ONE (03:57)
[2020-10-03] MEDS: INSULIN SLIDING SCALE (NOVOLOG) 1 VIAL SQ SCH ×4 (06:04→21:34)
[2020-10-03] MEDS: INSULIN (LEVEMIR) 100 UNITS/ML UNITS SQ SCH ×2 (06:05→21:34)
[2020-10-03] MEDS: ALBUTEROL SO4 HFA INHALER IH SCH ×2 (08:15→12:43)
[2020-10-03] MEDS ORDERED: PT OWN MED DRAWER 7, Y5N ONE (09:02)
[2020-10-03] MEDS: ASPIRIN 81 MG CHEWABLE TABLETS PO SCH (09:22)
[2020-10-03] MEDS: DEXAMETHASONE SOD PHOSPHATE 10 MG/1 ML VIAL IVPUSH SCH (09:22)
[2020-10-03] MEDS: DOCUSATE SODIUM 100 MG CAPSULE (FP) PO SCH (09:22)
[2020-10-03] MEDS: ASCORBIC ACID 500 MG TABLET (FP) PO SCH ×2 (09:23→21:31)
[2020-10-03] MEDS: BUDESONIDE/FORMETEROL FUMARATE 160/4.5 mcg INHALER IH SCH ×2 (09:23→21:31)
[2020-10-03] MEDS: ZINC SULFATE 220 MG CAPSULE (FP) PO SCH (09:23)
[2020-10-03] MEDS: POLYETHYLENE GLYCOL 3350 119 GM BTL PO SCH (09:23)
[2020-10-03] MEDS: PANTOPRAZOLE SODIUM 40 MG VIAL IVPUSH SCH (09:23)
[2020-10-03] MEDS: ENOXAPARIN NA (PORCINE) 80 MG/0.8 ML DISP.SYRIN SQ SCH ×2 (09:23→21:31)
[2020-10-03] MEDS: CHOLECALCIFEROL (VIT D3) 1,000 UNIT (25 MCG) TABLET PO SCH (09:24)
[2020-10-03] MEDS ORDERED: RAPID SEQUENCE INTUBATION KIT NR ONE (10:34)
[2020-10-03] MEDS ORDERED: PROPOFOL 1,000,000 MCG/100 ML VIAL ONE (10:36)
[2020-10-03] MEDS ORDERED: KETAMINE HCL 200 MG/20 ML VIAL IVPUSH ONE (10:38)
[2020-10-03] MEDS ORDERED: NOREPINEPHRINE NS PREMIX 16,000 MCG/500 ML BAG IVPB ONE (10:43)
[2020-10-03] MEDS ORDERED: ROCURONIUM BROMIDE 50 MG/5 ML VIAL IV ONE (10:45)
[2020-10-03] MEDS ORDERED: MIDAZOLAM IN 0.9 % SOD.CHLORID 100 MG/100 ML PLAST..BAG IVPB SCH ×2 (10:45→16:00)
[2020-10-03] MEDS ORDERED: INSULIN REGULAR HUMAN 100 UNITS/ML *VIAL ONE (11:56)
[2020-10-03] MEDS: FENTANYL NS IVPB 500 MCG/100 ML BAG IVPB SCH ×2 (12:00→21:33)
[2020-10-03] MEDS: MIDAZOLAM 100 MG/100 ML MG IVPB SCH (12:00)
[2020-10-03] MEDS: VECURONIUM BROMIDE 100 MG/100 ML BAG IVPB SCH (12:30)
[2020-10-03] MEDS: MULTIVIT INJ. ADULT COMBO WITH VIT K 1 COMBO 10 ML VIAL IV SCH (12:42)
[2020-10-03] MEDS ORDERED: FENTANYL IVPB 500 MCG/100 ML BAG IVPB ONE (19:09)
[2020-10-03 20:54] LABS: ARTERIAL BLD GAS O2 SATURATION 96.7 mmHg (95-98); ARTERIAL BLOOD GAS BASE EXCESS -3.7 mmol/L (-2-2); ARTERIAL BLOOD GAS PO2 96.2 mmHg (80-100); ARTERIAL BLOOD GAS pH 7.312 (7.350-7.450)
[2020-10-03 20:56] LABS: ALLENS TEST POSITIVE; VENT MODE A/C; VENT RATE 30
[2020-10-04] MEDS: INSULIN (LEVEMIR) 100 UNITS/ML UNITS SQ SCH (06:22)
[2020-10-04] MEDS: INSULIN SLIDING SCALE (NOVOLOG) 1 VIAL SQ SCH ×3 (06:22→16:42)
[2020-10-04 06:29] LABS: HEMATOCRIT 38.5 % (32.4-45.2); HEMOGLOBIN 12.8 GM/dL (10.7-15.3); MCH 30.9 pg (25.7-33.7); MCHC 33.2 g/dl (32.0-36.0); MEAN PLT VOLUME 7.6 fl (7.5-11.1); PLATELET COUNT 214 K/MM3 (134-434); RBC 4.15 M/mm3 (3.60-5.2); RDW 20.1 % (11.6-15.6); WHITE BLOOD COUNT 15.5 K/mm3 (4.0-10.0)
[2020-10-04 06:43] LABS: ARTERIAL BLD GAS O2 SATURATION 98.5 mmHg (95-98); ARTERIAL BLOOD GAS BASE EXCESS -4.3 mmol/L (-2-2); ARTERIAL BLOOD GAS PO2 136.1 mmHg (80-100); ARTERIAL BLOOD GAS pH 7.306 (7.350-7.450)
[2020-10-04 06:45] LABS: ALLENS TEST POSITIVE; VENT MODE A/C; VENT RATE 30
[2020-10-04] MEDS: MIDAZOLAM 100 MG/100 ML MG IVPB SCH ×2 (07:00→16:37)
[2020-10-04] MEDS: FENTANYL NS IVPB 500 MCG/100 ML BAG IVPB SCH ×4 (07:00→19:57)
[2020-10-04 07:03] LABS: POTASSIUM 4.3 mmol/L (3.5-5.1)
[2020-10-04 07:05] LABS: ALBUMIN 2.6 g/dl (3.4-5.0); BLOOD UREA NITROGEN 49.2 mg/dL (7-18); CALCIUM 8.5 mg/dL (8.5-10.1); MAGNESIUM 2.7 mg/dL (1.8-2.4)
[2020-10-04 07:08] LABS: CREATININE 0.9 mg/dL (0.55-1.3)
[2020-10-04 07:09] LABS: PHOSPHOROUS 6.4 mg/dL (2.5-4.9)
[2020-10-04 07:10] LABS: BILIRUBIN,TOTAL 0.6 mg/dL (0.2-1); TOT PROT 5.5 g/dl (6.4-8.2)
[2020-10-04] MEDS ORDERED: PT OWN MED DRAWER 7, Y5N ONE (09:30)
[2020-10-04] MEDS: ASPIRIN 81 MG CHEWABLE TABLETS PO SCH (09:42)
[2020-10-04] MEDS: ASCORBIC ACID 500 MG TABLET (FP) PO SCH (09:46)
[2020-10-04] MEDS: ZINC SULFATE 220 MG CAPSULE (FP) PO SCH (09:46)
[2020-10-04] MEDS: DEXAMETHASONE SOD PHOSPHATE 10 MG/1 ML VIAL IVPUSH SCH (09:46)
[2020-10-04] MEDS: CHOLECALCIFEROL (VIT D3) 1,000 UNIT (25 MCG) TABLET PO SCH (09:46)
[2020-10-04] MEDS: PANTOPRAZOLE SODIUM 40 MG VIAL IVPUSH SCH (09:46)
[2020-10-04] MEDS: BUDESONIDE/FORMETEROL FUMARATE 160/4.5 mcg INHALER IH SCH (09:46)
[2020-10-04] MEDS: POLYETHYLENE GLYCOL 3350 119 GM BTL PO SCH (09:48)
[2020-10-04] MEDS: MULTIVIT INJ. ADULT COMBO WITH VIT K 1 COMBO 10 ML VIAL IV SCH (09:49)
[2020-10-04] MEDS: DOCUSATE SODIUM 100 MG CAPSULE (FP) PO SCH (10:36)
[2020-10-04] MEDS ORDERED: CEFTRIAXONE 1 GM in DEXTROSE 5%-WATER - 50 ML IVPB SCH (11:30)
[2020-10-04] MEDS ORDERED: DEXAMETHASONE SOD PHOSPHATE 10 MG/1 ML VIAL IVPUSH SCH ×2 (11:55→12:15)
[2020-10-04] MEDS: VECURONIUM BROMIDE 100 MG/100 ML BAG IVPB SCH (12:00)
[2020-10-04] MEDS ORDERED: VASOPRESSIN 40 UNITS in SODIUM CHLORIDE 98 ML IVPB SCH (13:15)
[2020-10-04 14:01] LABS: ARTERIAL BLD GAS O2 SATURATION 95.2 mmHg (95-98); ARTERIAL BLOOD GAS BASE EXCESS -11.8 mmol/L (-2-2); ARTERIAL BLOOD GAS PO2 99.6 mmHg (80-100); ARTERIAL BLOOD GAS pH 7.121 (7.350-7.450)
[2020-10-04 14:02] LABS: ALLENS TEST POSITIVE
[2020-10-04 14:29] VITALS: TEMP 98
[2020-10-04] MEDS ORDERED: cefTRIAXone SODIUM 1 GM VIAL ONE (14:39)
[2020-10-04] MEDS ORDERED: DEXTROSE 5%-WATER - 50 ML IVPB ONE (14:39)
[2020-10-04] MEDS ORDERED: NOREPINEPHRINE NS PREMIX 8,000 MCG/500 ML BAG IVPB SCH (17:30)
[2020-10-04 20:03] VITALS: BP 38/24; PULSE 60
== END 2020-10-04 20:02 | disposition expired | DRG 951 ==
LOC: JER 02:30 → JERBED 06:37 → J5WEST-2 11:33 → J7W 09-13 12:33 → J4W 09-25 21:12 → JICU 09-30 12:03
PROVIDERS: ADMIT Hospitalist; ATTEND Internal Medicine
PROC: XW13325 Transfusion of Convalescent Plasma (Nonautologous) into Peripheral Vein, Percutaneous Approach, New Technology Group 5 (ICD-10-PCS; principal; 2020-09-05)
PROC: XW033E5 Introduction of Remdesivir Anti-infective into Peripheral Vein, Percutaneous Approach, New Technology Group 5 (ICD-10-PCS; 2020-09-05)
PROC: XW033H5 Introduction of Tocilizumab into Peripheral Vein, Percutaneous Approach, New Technology Group 5 (ICD-10-PCS; 2020-09-10)
PROC: 5A1945Z Respiratory Ventilation, 24-96 Consecutive Hours (ICD-10-PCS; 2020-10-03)
PROC: 0BH17EZ Insertion of Endotracheal Airway into Trachea, Via Natural or Artificial Opening (ICD-10-PCS; 2020-10-03)
PROC: 0DH67UZ Insertion of Feeding Device into Stomach, Via Natural or Artificial Opening (ICD-10-PCS; 2020-10-04)
PROC: 2Y41X5Z Packing of Nasal Region using Packing Material (ICD-10-PCS; 2020-10-04)
PROC: 0DP0XUZ Removal of Feeding Device from Upper Intestinal Tract, External Approach (ICD-10-PCS; 2020-10-04)
DX: U07.1 COVID-19 (principal); J80 Acute respiratory distress syndrome; J12.82 Pneumonia due to coronavirus disease 2019; E87.2 Acidosis; L89.301 Pressure ulcer of unspecified buttock, stage 1; E11.65 Type 2 diabetes mellitus with hyperglycemia; I10 Essential (primary) hypertension; E66.9 Obesity, unspecified; Z68.30 Body mass index [BMI] 30.0-30.9, adult; K59.00 Constipation, unspecified; F41.9 Anxiety disorder, unspecified; R04.0 Epistaxis
CPT/HCPCS: 31500; 36415; 36430; 36600; 71045-TC-FY; 80048; 80053; 81003; 82248; 82550; 82553; 82728; 82803; 82962; 83036; 83605; 83615; 83735; 84100; 84484; 85025; 85027; 85379; 85610; 85651; 85730; 86140; 86769; 86850; 86900; 86901; 87040; 87086; 87804; 93005; 93010; 94002; 94010; 94660; 97116-GP; 97162-GP; 99285-25; C9399; C9803; J0131; J1100; J3262; P9017; U0003